=== PATIENT | female | born 1975 | race Caucasian/White ===

== ENCOUNTER → 2016-06-04 | Outpatient (CLI) | payer MEDICARE, OTHER ==
--- NOTE | 2016-06-06 09:53 | MM ---
Reason for exam: screening (asymptomatic). Last mammogram was performed 1 year ago. History: Patient history of other cancer. Benign left mammotome panel of the left breast, April 09, 2011. Physical Findings: A clinical breast exam by your physician is recommended on an annual basis and results should be correlated with mammographic findings. MG 3D Screening Mammo W/Cad Bilateral CC and MLO view(s) were taken. Prior study comparison: June 01, 2015, bilateral MG screening mammo w CAD. April 28, 2012, CAD bilateral diagnostic mammogram. The breast tissue is heterogeneously dense. This may lower the sensitivity of mammography. There is no discrete abnormality. No significant changes when compared with prior studies. ASSESSMENT: Negative, BI-RAD 1 RECOMMENDATION: Routine screening mammogram of both breasts in 1 year.
== END | disposition home or self-care (01) ==
LOC: RADMAMWWP 13:22
PROVIDERS: ATTEND Family Medicine
DX: Z12.31 Encounter for screening mammogram for malignant neoplasm of breast (principal)
CPT/HCPCS: 77063; G0202

== ENCOUNTER 2017-02-12 15:21 | Emergency (ER) | payer MEDICARE, OTHER ==
[2017-02-12] MEDS ORDERED: SODIUM CHLORIDE 0.9% 2,000 ML IV STA (15:48)
[2017-02-12] MEDS ORDERED: METOCLOPRAMIDE 5 MG/ML 2 ML VIAL IVP STA (16:12)
--- NOTE | 2017-02-12 16:16 | ED ---
General Adult HPI - General Chief complaint: Nausea/Vomiting/Diarrhea Stated complaint: Low Blood Pressure Time Seen by Provider: 02/12/17 15:46 Source: patient, RN notes reviewed Mode of arrival: wheelchair Limitations: no limitations - History of Present Illness Initial comments: This a 42-year-old female presents emergency Department with chief complaint of not feeling well. Patient states that she's been having increased weakness, weight loss nausea and vomiting. Patient states that she lost her son last month and states that she just has not been able the margin she's lost approximately 20 pounds. Patient saw PCP yesterday arturo lab work and portable emergency department for hydration. She states she never became today she was not feeling better. She has been having bouts where she becomes dizzy and feels that she can pass out but has not lost consciousness. Patient states that she's had problems with this in the past in which her blood pressure was low. Patient denies any chest pain, palpitations, headache, weakness first breath, diarrhea or constipation. Patient states that she also was increased on her Paxil yesterday to help with her depression. Patient denies any suicidal or homicidal thoughts. - Related Data Home Medications Medication Instructions Recorded Confirmed Primidone [Mysoline] 50 mg PO TID 02/24/14 02/12/17 Cyclobenzaprine [Flexeril] 10 mg PO HS 02/12/17 02/12/17 Gabapentin [Neurontin] 400 mg PO TID 02/12/17 02/12/17 Ibuprofen [Motrin] 600 mg PO Q6HR 02/12/17 02/12/17 LORazepam [Ativan] 1 mg PO HS 02/12/17 02/12/17 Loratadine [Claritin] 10 mg PO DAILY 02/12/17 02/12/17 Lubiprostone [Amitiza] 8 mcg PO DAILY 02/12/17 02/12/17 PARoxetine [Paxil] 10 mg PO DAILY 02/12/17 02/12/17 Pantoprazole Sodium [Protonix] 40 mg PO DAILY 02/12/17 02/12/17 lamoTRIgine [LaMICtal Xr] 50 mg PO BID 02/12/17 02/12/17 oxyCODONE-APAP 10-325MG [Percocet 1 tab PO TID 02/12/17 02/12/17 10-325 mg] Previous Rx's Medication Instructions Recorded Meclizine [Antivert] 25 mg PO TID tab 01/11/15 Allergies Allergy/AdvReac Type Severity Reaction Status Date / Time clarithromycin [From Biaxin] AdvReac SEIZURES Verified 02/12/17 16:05 clonazepam [From Klonopin] AdvReac SEIZURES Verified 02/12/17 16:05 codeine AdvReac SEIZURES Verified 02/12/17 16:05 diphenhydramine HCl AdvReac SEIZURES Verified 02/12/17 16:05 [From Benadryl] hydrocodone bitartrate AdvReac SEIZURES Verified 02/12/17 16:05 [From Vicodin] meperidine HCl [From Demerol] AdvReac SEIZURES Verified 02/12/17 16:05 pregabalin [From Lyrica] AdvReac SEIZURES Verified 02/12/17 16:05 propoxyphene napsylate AdvReac SEIZURES Verified 02/12/17 16:05 [From Darvocet-N] Review of Systems ROS Statement: Those systems with pertinent positive or pertinent negative responses have been documented in the HPI. ROS Other: All systems not noted in ROS Statement are negative. Past Medical History Past Medical History: Fibromyalgia, Neurologic Disorder, Seizure Disorder Additional Past Medical History / Comment(s): tremors. back pain History of Any Multi-Drug Resistant Organisms: None Reported Past Surgical History: Hysterectomy, Orthopedic Surgery Additional Past Surgical History / Comment(s): rt wrist and shoulder Past Psychological History: No Psychological Hx Reported Smoking Status: Never smoker Past Alcohol Use History: None Reported Past Drug Use History: Marijuana General Exam Limitations: no limitations General appearance: alert, in no apparent distress Head exam: Present: atraumatic, normocephalic, normal inspection Eye exam: Present: normal appearance, PERRL, EOMI. Absent: scleral icterus, conjunctival injection, periorbital swelling ENT exam: Present: normal exam, normal oropharynx, mucous membranes moist, TM's normal bilaterally, normal external ear exam Neck exam: Present: normal inspection, full ROM. Absent: tenderness, meningismus, lymphadenopathy Respiratory exam: Present: normal lung sounds bilaterally. Absent: respiratory distress, wheezes, rales, rhonchi, stridor Cardiovascular Exam: Present: regular rate, normal rhythm, normal heart sounds. Absent: systolic murmur, diastolic murmur, rubs, gallop, clicks GI/Abdominal exam: Present: soft, normal bowel sounds. Absent: distended, tenderness, guarding, rebound, rigid Neurological exam: Present: alert, oriented X3, CN II-XII intact Skin exam: Present: warm, dry, intact, normal color. Absent: rash Course Vital Signs 02/12/17 02/12/17 02/12/17 15:40 16:49 18:01 Temperature 99.1 F 98.6 F Pulse Rate 68 72 56 L Respiratory 18 18 17 Rate Blood Pressure 106/55 103/55 97/54 O2 Sat by Pulse 98 100 99 Oximetry EKG Findings - EKG Comments: EKG Findings:: EKG performed at 16:29 sinus bradycardia with a rate of 55 MT interval 150 QRS duration 74 QT/QTC 406/388 Medical Decision Making - Medical Decision Making 42-year-old female was on emergency department for possible dehydration not feeling well. Patient lab work is unremarkable. Patient appears to have underlying depression secondary to loss of her son. Patient was hydrated emergency department states that she does feel better. Patient discharged advised to follow-up with her PCP return parameters were discussed. - Lab Data Result diagrams: 02/12/17 16:15 02/12/17 16:15 Lab Results 02/12/17 02/12/17 02/12/17 Range/Units 16:15 16:15 16:15 WBC 3.9 (3.8-10.6) k/uL RBC 4.11 (3.80-5.40) m/uL Hgb 13.3 (11.4-16.0) gm/dL Hct 39.2 (34.0-46.0) % MCV 95.3 (80.0-100.0) fL MCH 32.3 (25.0-35.0) pg MCHC 33.9 (31.0-37.0) g/dL RDW 12.8 (11.5-15.5) % Plt Count 209 (150-450) k/uL Neutrophils % 66 % Lymphocytes % 24 % Monocytes % 5 % Eosinophils % 3 % Basophils % 1 % Neutrophils # 2.6 (1.3-7.7) k/uL Lymphocytes # 1.0 (1.0-4.8) k/uL Monocytes # 0.2 (0-1.0) k/uL Eosinophils # 0.1 (0-0.7) k/uL Basophils # 0.0 (0-0.2) k/uL Sodium 139 (137-145) mmol/L Potassium 4.2 (3.5-5.1) mmol/L Chloride 105 (98-107) mmol/L Carbon Dioxide 25 (22-30) mmol/L Anion Gap 9 mmol/L BUN 10 (7-17) mg/dL Creatinine 0.74 (0.52-1.04) mg/dL Est GFR (MDRD) Af Amer >60 (>60 ml/min/1.73 sqM) Est GFR (MDRD) Non-Af >60 (>60 ml/min/1.73 sqM) Glucose 96 (74-99) mg/dL Calcium 9.2 (8.4-10.2) mg/dL Total Bilirubin 0.2 (0.2-1.3) mg/dL AST 18 (14-36) U/L ALT 24 (9-52) U/L Alkaline Phosphatase 48 (38-126) U/L Troponin I (0.000-0.034) ng/mL Total Protein 6.3 (6.3-8.2) g/dL Albumin 4.0 (3.5-5.0) g/dL Amylase 57 (30-110) U/L Lipase 155 (23-300) U/L Urine Color Light Yellow Urine Appearance Clear (Clear) Urine pH 6.0 (5.0-8.0) Ur Specific Run[place] 1.006 (1.001-1.035) Urine Protein Negative (Negative) Urine Glucose (UA) 1+ H (Negative) Urine Ketones Negative (Negative) Urine Blood Negative (Negative) Urine Nitrite Negative (Negative) Urine Bilirubin Negative (Negative) Urine Urobilinogen <2.0 (<2.0) mg/dL Ur Leukocyte Esterase Negative (Negative) 02/12/17 Range/Units 16:15 WBC (3.8-10.6) k/uL RBC (3.80-5.40) m/uL Hgb (11.4-16.0) gm/dL Hct (34.0-46.0) % MCV (80.0-100.0) fL MCH (25.0-35.0) pg MCHC (31.0-37.0) g/dL RDW (11.5-15.5) % Plt Count (150-450) k/uL Neutrophils % % Lymphocytes % % Monocytes % % Eosinophils % % Basophils % % Neutrophils # (1.3-7.7) k/uL Lymphocytes # (1.0-4.8) k/uL Monocytes # (0-1.0) k/uL Eosinophils # (0-0.7) k/uL Basophils # (0-0.2) k/uL Sodium (137-145) mmol/L Potassium (3.5-5.1) mmol/L Chloride (98-107) mmol/L Carbon Dioxide (22-30) mmol/L Anion Gap mmol/L BUN (7-17) mg/dL Creatinine (0.52-1.04) mg/dL Est GFR (MDRD) Af Amer (>60 ml/min/1.73 sqM) Est GFR (MDRD) Non-Af (>60 ml/min/1.73 sqM) Glucose (74-99) mg/dL Calcium (8.4-10.2) mg/dL Total Bilirubin (0.2-1.3) mg/dL AST (14-36) U/L ALT (9-52) U/L Alkaline Phosphatase (38-126) U/L Troponin I <0.012 (0.000-0.034) ng/mL Total Protein (6.3-8.2) g/dL Albumin (3.5-5.0) g/dL Amylase (30-110) U/L Lipase (23-300) U/L Urine Color Urine Appearance (Clear) Urine pH (5.0-8.0) Ur Specific [place] (1.001-1.035) Urine Protein (Negative) Urine Glucose (UA) (Negative) Urine Ketones (Negative) Urine Blood (Negative) Urine Nitrite (Negative) Urine Bilirubin (Negative) Urine Urobilinogen (<2.0) mg/dL Ur Leukocyte Esterase (Negative) Disposition Clinical Impression: Depression, Decreased appetite Disposition: HOME SELF-CARE Condition: Stable Instructions: Depression (ED) Additional Instructions: Please return to the Emergency Department if symptoms worsen or any other concerns. Referrals: Sergei Jordan MD [Primary Care Provider] - 1-2 days Time of Disposition: 18:06
[2017-02-12 16:34] LABS: Basophils % (A) 1 %; CH 31.8; CHCM 33.5; Eosinophils # (A) 0.1 k/uL (0-0.7); Eosinophils % (A) 3 %; HCT 39.2 % (34.0-46.0); HDW 2.39; HGB 13.3 gm/dL (11.4-16.0); Luc # (Auto) 0.04; Luc % (Auto) 1; Lymphocytes % (A) 24 %; MCH 32.3 pg (25.0-35.0); MCHC 33.9 g/dL (31.0-37.0); MCV 95.3 fL (80.0-100.0); Mean Platelet Volume 7.3; Monocytes # (A) 0.2 k/uL (0-1.0); Monocytes % (A) 5 %; Neutrophils # (A) 2.6 k/uL (1.3-7.7); Neutrophils % (A) 66 %; RBC 4.11 m/uL (3.80-5.40); RDW 12.8 % (11.5-15.5); WBC 3.9 k/uL (3.8-10.6); WBC (Perox) 3.98
[2017-02-12 16:44] LABS: ALT 24 U/L (9-52); AST 18 U/L (14-36); Alkaline Phosphatase 48 U/L (38-126); Amylase 57 U/L (30-110); Anion Gap 9 mmol/L; Blood Urea Nitrogen 10 mg/dL (7-17); Calcium 9.2 mg/dL (8.4-10.2); Carbon Dioxide 25 mmol/L (22-30); Chloride 105 mmol/L (98-107); Glucose 96 mg/dL (74-99); Non-African American GFR(MDRD) >60 (>60 ml/min/1.73 sqM); Potassium 4.2 mmol/L (3.5-5.1); Sodium 139 mmol/L (137-145); Total Bilirubin 0.2 mg/dL (0.2-1.3); Total Protein 6.3 g/dL (6.3-8.2)
[2017-02-12 17:54] LABS: Appearance,Urine Clear (Clear); Bilirubin,Urine Negative (Negative); Glucose,Urine (UA) 1+ (Negative); Ketones,Urine Negative (Negative); Leukocyte Esterase,Urine Negative (Negative); Nitrite,Urine Negative (Negative); Protein,Urine Negative (Negative); Specific Gravity,Urine 1.006 (1.001-1.035); UA Billing (MACRO vs. MICRO) CHEM; Urobilinogen,Urine <2.0 mg/dL (<2.0)
[2017-02-12 18:02] VITALS: BP 97/54; PULSE 56; RESP 17; TEMP 98.6
== END 2017-02-12 18:15 | disposition home or self-care (01) ==
LOC: EC 15:21
DX: F32.9 Major depressive disorder, single episode, unspecified (principal); R63.0 Anorexia; R11.2 Nausea with vomiting, unspecified; R53.1 Weakness; R42 Dizziness and giddiness; G40.909 Epilepsy, unspecified, not intractable, without status epilepticus; M79.7 Fibromyalgia; Z79.1 Long term (current) use of non-steroidal anti-inflammatories (NSAID); Z79.891 Long term (current) use of opiate analgesic; Z79.899 Other long term (current) drug therapy; Z88.1 Allergy status to other antibiotic agents; Z88.5 Allergy status to narcotic agent; Z88.8 Allergy status to other drugs, medicaments and biological substances
CPT/HCPCS: 99284; 96374; 96361; 36415; 93005; 80053; 82150; 83690; 84484; 85025; 81003; J2765

== ENCOUNTER 2017-08-06 10:47 | Emergency (ER) | payer MEDICARE, OTHER ==
[2017-08-06] MEDS ORDERED: SODIUM CHLORIDE 0.9% 500 ML IV STA (11:16)
[2017-08-06] MEDS ORDERED: ONDANSETRON 4 MG/2 ML VIAL IVP STA (11:16)
[2017-08-06] MEDS ORDERED: SODIUM CHLORIDE 0.9% 1,000 ML IV STA (11:16)
--- NOTE | 2017-08-06 11:50 | ED ---
General Adult HPI - General Chief complaint: Nausea/Vomiting/Diarrhea Stated complaint: shaky/trouble standing/no appetite Time Seen by Provider: 08/06/17 11:00 Source: patient, RN notes reviewed, old records reviewed Mode of arrival: wheelchair Limitations: no limitations - History of Present Illness Initial comments: This is a 42-year-old female to the ER for evaluation. She presents today for evaluation regarding cough congestion weakness dizziness lightheadedness, patient states she feels severely anxious. Concerned she has pneumonia or other disease patient does have chronic pain issues with neurologic disorders. She did taking all medications as prescribed. Patient does admit to recent weight loss. She admits to nausea with no diarrhea. No fevers. No chest pain. Patient does admit to increased stress in her life with her son dying within the last year - Related Data Home Medications Medication Instructions Recorded Confirmed Primidone [Mysoline] 50 mg PO TID 02/24/14 08/06/17 Gabapentin [Neurontin] 400 mg PO TID 02/12/17 08/06/17 Ibuprofen [Motrin] 600 mg PO BID 02/12/17 08/06/17 Loratadine [Claritin] 10 mg PO DAILY 02/12/17 08/06/17 PARoxetine [Paxil] 10 mg PO DAILY 02/12/17 08/06/17 Pantoprazole Sodium [Protonix] 40 mg PO DAILY 02/12/17 08/06/17 lamoTRIgine [LaMICtal Xr] 50 mg PO TID 02/12/17 08/06/17 oxyCODONE-APAP 10-325MG [Percocet 1 tab PO TID 02/12/17 08/06/17 10-325 mg] Linaclotide [Linzess] 72 mcg PO DAILY 08/06/17 08/06/17 Previous Rx's Medication Instructions Recorded Meclizine [Antivert] 25 mg PO TID tab 01/11/15 Oseltamivir [Tamiflu] 75 mg PO Q12HR #10 cap 08/06/17 Allergies Allergy/AdvReac Type Severity Reaction Status Date / Time clarithromycin [From Biaxin] AdvReac SEIZURES Verified 08/06/17 11:21 clonazepam [From Klonopin] AdvReac SEIZURES Verified 08/06/17 11:21 codeine AdvReac SEIZURES Verified 08/06/17 11:21 diphenhydramine HCl AdvReac SEIZURES Verified 08/06/17 11:21 [From Benadryl] hydrocodone bitartrate AdvReac SEIZURES Verified 08/06/17 11:21 [From Vicodin] meperidine HCl [From Demerol] AdvReac SEIZURES Verified 08/06/17 11:21 pregabalin [From Lyrica] AdvReac SEIZURES Verified 08/06/17 11:21 propoxyphene napsylate AdvReac SEIZURES Verified 08/06/17 11:21 [From Darvocet-N] Review of Systems ROS Statement: Those systems with pertinent positive or pertinent negative responses have been documented in the HPI. ROS Other: All systems not noted in ROS Statement are negative. Past Medical History Past Medical History: Fibromyalgia, Neurologic Disorder, Seizure Disorder Additional Past Medical History / Comment(s): tremors. back pain History of Any Multi-Drug Resistant Organisms: None Reported Past Surgical History: Hysterectomy, Orthopedic Surgery Additional Past Surgical History / Comment(s): rt wrist and shoulder Past Psychological History: No Psychological Hx Reported Smoking Status: Never smoker Past Alcohol Use History: None Reported Past Drug Use History: Marijuana General Exam Limitations: no limitations General appearance: alert, in no apparent distress Head exam: Present: atraumatic, normocephalic, normal inspection Eye exam: Present: normal appearance, PERRL, EOMI. Absent: scleral icterus, conjunctival injection, periorbital swelling ENT exam: Present: normal exam, mucous membranes moist Neck exam: Present: normal inspection. Absent: tenderness, meningismus, lymphadenopathy Respiratory exam: Present: normal lung sounds bilaterally. Absent: respiratory distress, wheezes, rales, rhonchi, stridor Cardiovascular Exam: Present: regular rate, normal rhythm, normal heart sounds. Absent: systolic murmur, diastolic murmur, rubs, gallop, clicks GI/Abdominal exam: Present: soft, normal bowel sounds. Absent: distended, tenderness, guarding, rebound, rigid Extremities exam: Present: normal inspection, full ROM, normal capillary refill. Absent: tenderness, pedal edema, joint swelling, calf tenderness Back exam: Present: normal inspection Neurological exam: Present: alert, oriented X3, CN II-XII intact Psychiatric exam: Present: normal affect, normal mood Skin exam: Present: warm, dry, intact, normal color. Absent: rash Course Vital Signs 08/06/17 08/06/17 10:55 12:23 Temperature 97.6 F Pulse Rate 66 56 L Respiratory 18 16 Rate Blood Pressure 100/53 97/58 O2 Sat by Pulse 100 98 Oximetry - Reevaluation(s) Reevaluation #1: 08/06/17 11:50 Patient has mild improvement in symptoms Reevaluation #2: 08/06/17 12:58 Patient is in no acute distress EKG Findings - EKG Comments: EKG Findings:: EKG shows sinus bradycardia rate of 58, ND 142, QRS 74, QTC 433 Medical Decision Making - Medical Decision Making 42 female the ER not feeling well, positive influenza. We'll treat appropriately, patient encouraged fluid intake and rest. Patient can be discharged home - Lab Data Result diagrams: 08/06/17 11:39 08/06/17 11:39 Lab Results 08/06/17 08/06/17 08/06/17 Range/Units 11:39 11:39 11:39 WBC 2.2 L (3.8-10.6) k/uL RBC 4.54 (3.80-5.40) m/uL Hgb 14.3 (11.4-16.0) gm/dL Hct 39.6 (34.0-46.0) % MCV 87.1 (80.0-100.0) fL MCH 31.6 (25.0-35.0) pg MCHC 36.2 (31.0-37.0) g/dL RDW 12.3 (11.5-15.5) % Plt Count 153 (150-450) k/uL Neutrophils % 34 % Lymphocytes % 54 % Monocytes % 7 % Eosinophils % 0 % Basophils % 1 % Neutrophils # 0.8 L (1.3-7.7) k/uL Lymphocytes # 1.2 (1.0-4.8) k/uL Monocytes # 0.2 (0-1.0) k/uL Eosinophils # 0.0 (0-0.7) k/uL Basophils # 0.0 (0-0.2) k/uL Manual Slide Review Performed RBC Morphology Normal PT (9.0-12.0) sec INR (<1.2) APTT (22.0-30.0) sec Sodium 141 (137-145) mmol/L Potassium 4.2 (3.5-5.1) mmol/L Chloride 106 (98-107) mmol/L Carbon Dioxide 19 L (22-30) mmol/L Anion Gap 16 mmol/L BUN 15 (7-17) mg/dL Creatinine 0.50 L (0.52-1.04) mg/dL Est GFR (CKD-EPI)AfAm >90 (>60 ml/min/1.73 sqM) Est GFR (CKD-EPI)NonAf >90 (>60 ml/min/1.73 sqM) Glucose 81 (74-99) mg/dL Plasma Lactic Acid Garcia (0.7-2.0) mmol/L Calcium 9.6 (8.4-10.2) mg/dL Phosphorus 2.5 (2.5-4.5) mg/dL Magnesium 1.6 (1.6-2.3) mg/dL Total Bilirubin 0.7 (0.2-1.3) mg/dL AST 27 (14-36) U/L ALT 27 (9-52) U/L Alkaline Phosphatase 54 (38-126) U/L Total Creatine Kinase 35 (30-135) U/L CK-MB (CK-2) 0.3 (0.0-2.4) ng/mL CK-MB (CK-2) Rel Index 0.9 Troponin I <0.012 (0.000-0.034) ng/mL Total Protein 6.8 (6.3-8.2) g/dL Albumin 4.2 (3.5-5.0) g/dL TSH 3.410 (0.465-4.680) mIU/L Influenza Type A RNA (Not Detectd) Influenza Type B (PCR) (Not Detectd) 08/06/17 08/06/17 08/06/17 Range/Units 11:39 11:39 12:17 WBC (3.8-10.6) k/uL RBC (3.80-5.40) m/uL Hgb (11.4-16.0) gm/dL Hct (34.0-46.0) % MCV (80.0-100.0) fL MCH (25.0-35.0) pg MCHC (31.0-37.0) g/dL RDW (11.5-15.5) % Plt Count (150-450) k/uL Neutrophils % % Lymphocytes % % Monocytes % % Eosinophils % % Basophils % % Neutrophils # (1.3-7.7) k/uL Lymphocytes # (1.0-4.8) k/uL Monocytes # (0-1.0) k/uL Eosinophils # (0-0.7) k/uL Basophils # (0-0.2) k/uL Manual Slide Review RBC Morphology PT 10.0 (9.0-12.0) sec INR 1.0 (<1.2) APTT 25.9 (22.0-30.0) sec Sodium (137-145) mmol/L Potassium (3.5-5.1) mmol/L Chloride (98-107) mmol/L Carbon Dioxide (22-30) mmol/L Anion Gap mmol/L BUN (7-17) mg/dL Creatinine (0.52-1.04) mg/dL Est GFR (CKD-EPI)AfAm (>60 ml/min/1.73 sqM) Est GFR (CKD-EPI)NonAf (>60 ml/min/1.73 sqM) Glucose (74-99) mg/dL Plasma Lactic Acid Garcia 1.3 (0.7-2.0) mmol/L Calcium (8.4-10.2) mg/dL Phosphorus (2.5-4.5) mg/dL Magnesium (1.6-2.3) mg/dL Total Bilirubin (0.2-1.3) mg/dL AST (14-36) U/L ALT (9-52) U/L Alkaline Phosphatase (38-126) U/L Total Creatine Kinase (30-135) U/L CK-MB (CK-2) (0.0-2.4) ng/mL CK-MB (CK-2) Rel Index Troponin I (0.000-0.034) ng/mL Total Protein (6.3-8.2) g/dL Albumin (3.5-5.0) g/dL TSH (0.465-4.680) mIU/L Influenza Type A RNA Not Detected (Not Detectd) Influenza Type B (PCR) Detected H (Not Detectd) - Radiology Data Radiology results: report reviewed (Chest x-ray and ultrasound of GALLBLADDER NEGATIVE), image reviewed Disposition Clinical Impression: Dehydration, Influenza Disposition: HOME SELF-CARE Condition: Good Instructions: Influenza (ED) Prescriptions: Oseltamivir [Tamiflu] 75 mg PO Q12HR #10 cap Referrals: Sergei Jordan MD [Primary Care Provider] - 1-2 days
[2017-08-06 12:07] LABS: ALT 27 U/L (9-52); AST 27 U/L (14-36); Albumin 4.2 g/dL (3.5-5.0); Alkaline Phosphatase 54 U/L (38-126); Anion Gap 16 mmol/L; Blood Urea Nitrogen 15 mg/dL (7-17); Calcium 9.6 mg/dL (8.4-10.2); Carbon Dioxide 19 mmol/L (22-30); Chloride 106 mmol/L (98-107); Glucose 81 mg/dL (74-99); Magnesium 1.6 mg/dL (1.6-2.3); Phosphorus 2.5 mg/dL (2.5-4.5); Potassium 4.2 mmol/L (3.5-5.1); Sodium 141 mmol/L (137-145); Total Bilirubin 0.7 mg/dL (0.2-1.3); Total Protein 6.8 g/dL (6.3-8.2)
[2017-08-06 12:08] LABS: Partial Thromboplastin Time 25.9 sec (22.0-30.0)
[2017-08-06 12:14] LABS: Creatine Kinase 35 U/L (30-135)
--- NOTE | 2017-08-06 12:19 | XR ---
EXAMINATION TYPE: XR chest 2V DATE OF EXAM: 08/06/2017 COMPARISON: NONE HISTORY: Chills and weakness. TECHNIQUE: Frontal and lateral views of the chest are obtained. FINDINGS: There is no focal air space opacity, pleural effusion, or pneumothorax seen. The cardiac silhouette size is within normal limits. Underlying scoliosis is present. IMPRESSION: No suspicious acute pulmonary process.
[2017-08-06 12:20] LABS: Basophils % (A) 1 %; Eosinophils % (A) 0 %; HCT 39.6 % (34.0-46.0); HGB 14.3 gm/dL (11.4-16.0); Lymphocytes # (A) 1.2 k/uL (1.0-4.8); Lymphocytes % (A) 54 %; MCH 31.6 pg (25.0-35.0); MCHC 36.2 g/dL (31.0-37.0); MCV 87.1 fL (80.0-100.0); Monocytes # (A) 0.2 k/uL (0-1.0); Monocytes % (A) 7 %; Neutrophils # (A) 0.8 k/uL (1.3-7.7); Neutrophils % (A) 34 %; Platelet Count 153 k/uL (150-450); RBC 4.54 m/uL (3.80-5.40); RDW 12.3 % (11.5-15.5); WBC 2.2 k/uL (3.8-10.6)
[2017-08-06 12:27] LABS: Creatine Kinase MB 0.3 ng/mL (0.0-2.4); Troponin I <0.012 ng/mL (0.000-0.034)
--- NOTE | 2017-08-06 12:54 | US ---
EXAMINATION TYPE: US gallbladder DATE OF EXAM: 08/06/2017 COMPARISON: NONE CLINICAL HISTORY: Pain. Pt states ABD pain with nausea EXAM MEASUREMENTS: Liver Length: 14.0 cm Gallbladder Wall: 0.3 cm CBD: 0.3 cm Right Kidney: 8.1 x 3.4 x 4.8 cm Pancreas: wnl, tail obscured by bowel gas Liver: Hyperechoic lesion right lobe= 1.1 x 0.6 x 1.0 cm, otherwise appeared wnl Gallbladder: wnl Evidence for sonographic Giron's sign: Yes CBD: wnl Right Kidney: Kidney small in size with cyst upper pole= 5.0 x 4.9 x 5.3 cm IMPRESSION: 1. No sonographic evidence of cholelithiasis or acute cholecystitis. 2. Solitary hyperechoic 1.1 cm hepatic lesion. In a patient of this age group. No history of backgrou nd liver disease is most commonly represents a hemangioma. Dynamic enhanced CT abdomen (liver mass pr otocol) could be performed for confirmation.
[2017-08-06] MEDS ORDERED: OSELTAMIVIR 75 MG CAP PO STA (12:57)
[2017-08-06] MEDS ORDERED: DEXAMETHASONE SOD PHOSPHATE 10 MG/ML 1 ML VIAL IM STA (12:57)
[2017-08-06 13:23] VITALS: BP 106/68; PULSE 60; RESP 18; TEMP 98.2
== END 2017-08-06 13:41 | disposition home or self-care (01) ==
LOC: EC 10:47
DX: E86.0 Dehydration (principal); J11.1 Influenza due to unidentified influenza virus with other respiratory manifestations; R11.0 Nausea; F41.9 Anxiety disorder, unspecified; F43.9 Reaction to severe stress, unspecified; M79.7 Fibromyalgia; G40.909 Epilepsy, unspecified, not intractable, without status epilepticus; Z79.891 Long term (current) use of opiate analgesic; Z79.1 Long term (current) use of non-steroidal anti-inflammatories (NSAID); Z79.899 Other long term (current) drug therapy; Z88.1 Allergy status to other antibiotic agents; Z88.5 Allergy status to narcotic agent; Z88.8 Allergy status to other drugs, medicaments and biological substances
CPT/HCPCS: 36415; 93005; 83880; 80053; 82550; 82553; 83605; 83735; 84100; 84443; 84484; 85025; 85610; 85730; 87502; 71046; 76705; 99285; 96374; 96361; 96372; J1100; J2405

== ENCOUNTER 2019-04-05 17:43 | Emergency (ER) | payer MEDICARE, OTHER ==
--- NOTE | 2019-04-05 18:08 | ED ---
Chest Pain HPI - General Stated Complaint: chest pain Time Seen by Provider: 04/05/19 17:53 Source: RN notes reviewed, old records reviewed Limitations: no limitations - History of Present Illness Initial Comments: This is a 44-year-old female the ER for evaluation she presents today for evaluation regards to chest pain. Left-sided chest pain stabbing chest pain pain to her back for 2 days. Patient has history of stabbing shooting pains in her left side. She has had prior heart evaluations including stress tests which have been normal. She went to [facility] was sent to ER. She does admit to increased stress as of late, remembering for of her son as well as some increased stress. She was on vacation. Patient did just return to [place] has no leg pain no leg swelling no shortness of breath noted. Patient did drive to and from [place] denying fevers cough congestion. MD Complaint: chest pain -: days(s) Onset: during rest, during exertion Pain Location: substernal, left chest Pain Radiation: LUE Severity: mild Severity scale (1-10): 5 Quality: tightness, aching Consistency: intermittent Improves With: nothing Worsens With: nothing Anginal Symptoms: nausea Other Symptoms: palpitations, other (Stress) Treatments Prior to Arrival: none - Related Data Home Medications Medication Instructions Recorded Confirmed Primidone [Mysoline] 50 mg PO TID 02/24/14 08/06/17 Gabapentin [Neurontin] 400 mg PO TID 02/12/17 08/06/17 Ibuprofen [Motrin] 600 mg PO BID 02/12/17 08/06/17 Loratadine [Claritin] 10 mg PO DAILY 02/12/17 08/06/17 PARoxetine [Paxil] 10 mg PO DAILY 02/12/17 08/06/17 Pantoprazole Sodium [Protonix] 40 mg PO DAILY 02/12/17 08/06/17 lamoTRIgine [LaMICtal Xr] 50 mg PO TID 02/12/17 08/06/17 oxyCODONE-APAP 10-325MG [Percocet 1 tab PO TID 02/12/17 08/06/17 10-325 mg] Linaclotide [Linzess] 72 mcg PO DAILY 08/06/17 08/06/17 Previous Rx's Medication Instructions Recorded Meclizine [Antivert] 25 mg PO TID tab 01/11/15 Oseltamivir [Tamiflu] 75 mg PO Q12HR #10 cap 08/06/17 Allergies Allergy/AdvReac Type Severity Reaction Status Date / Time clarithromycin [From Biaxin] AdvReac SEIZURES Verified 08/06/17 11:21 clonazepam [From Klonopin] AdvReac SEIZURES Verified 08/06/17 11:21 codeine AdvReac SEIZURES Verified 08/06/17 11:21 diphenhydramine HCl AdvReac SEIZURES Verified 08/06/17 11:21 [From Benadryl] hydrocodone bitartrate AdvReac SEIZURES Verified 08/06/17 11:21 [From Vicodin] meperidine HCl [From Demerol] AdvReac SEIZURES Verified 08/06/17 11:21 pregabalin [From Lyrica] AdvReac SEIZURES Verified 08/06/17 11:21 propoxyphene napsylate AdvReac SEIZURES Verified 08/06/17 11:21 [From Darvocet-N] Review of Systems ROS Statement: Those systems with pertinent positive or pertinent negative responses have been documented in the HPI. ROS Other: All systems not noted in ROS Statement are negative. EKG Findings - EKG Comments: EKG Findings:: EKG shows sinus rhythm rate of 67, HI 140, QRS 80, QTC 435 Past Medical History Past Medical History: Fibromyalgia, Neurologic Disorder, Seizure Disorder Additional Past Medical History / Comment(s): tremors. back pain History of Any Multi-Drug Resistant Organisms: None Reported Past Surgical History: Hysterectomy, Orthopedic Surgery Additional Past Surgical History / Comment(s): rt wrist and shoulder Past Psychological History: No Psychological Hx Reported Smoking Status: Never smoker Past Alcohol Use History: None Reported Past Drug Use History: Marijuana General Exam General appearance: alert, in no apparent distress, anxious Head exam: Present: atraumatic, normocephalic, normal inspection Eye exam: Present: normal appearance, PERRL, EOMI. Absent: scleral icterus, conjunctival injection, periorbital swelling ENT exam: Present: normal exam, mucous membranes moist Neck exam: Present: normal inspection. Absent: tenderness, meningismus, lymphadenopathy Respiratory exam: Present: normal lung sounds bilaterally. Absent: respiratory distress, wheezes, rales, rhonchi, stridor Cardiovascular Exam: Present: regular rate, normal rhythm, normal heart sounds. Absent: systolic murmur, diastolic murmur, rubs, gallop, clicks GI/Abdominal exam: Present: soft, normal bowel sounds. Absent: distended, tenderness, guarding, rebound, rigid Extremities exam: Present: normal inspection, full ROM, normal capillary refill. Absent: tenderness, pedal edema, joint swelling, calf tenderness Back exam: Present: normal inspection Neurological exam: Present: alert, oriented X3, CN II-XII intact Psychiatric exam: Present: normal affect, normal mood Skin exam: Present: warm, dry, intact, normal color. Absent: rash Course Vital Signs 04/05/19 04/05/19 04/05/19 17:45 17:47 18:58 Temperature 98.2 F 98.2 F Pulse Rate 70 72 Pulse Rate [ 70 [employer] ] Respiratory 18 18 Rate Blood Pressure 108/83 108/69 O2 Sat by Pulse 98 98 Oximetry 04/05/19 04/05/19 19:12 20:27 Temperature 97.8 F 98.4 F Pulse Rate 84 57 L Pulse Rate [ [employer] ] Respiratory 18 12 Rate Blood Pressure 112/97 97/61 O2 Sat by Pulse 98 95 Oximetry - Reevaluation(s) Reevaluation #1: Medical record is reviewed Patient denying current chest pain. Does show by with anxiety medication Patient does not want stay in the ER for further evaluation or monitor Chest Pain MDM - MDM 44 female the ER for evaluation presented with chest pain. Patient presents today for atypical chest pain. Patient states he feels good at this time, she does admit to some significant anxiety has had recent cardiac evaluation does not want stay in the ER for evaluation Disposition Clinical Impression: Chest pain, Atypical chest pain, Panic attack Disposition: HOME SELF-CARE Condition: Good Instructions (If sedation given, give patient instructions): Chest Pain (ED) Is patient prescribed a controlled substance at d/c from ED?: No Referrals: Kumar Joseph Jr, [Primary Care Provider] - 1-2 days
[2019-04-05] MEDS ORDERED: MORPHINE SULFATE 4 MG/ML SYRINGE IVP STA (18:17)
[2019-04-05] MEDS ORDERED: PANTOPRAZOLE 40 MG/10 ML VIAL IVP STA (18:17)
[2019-04-05] MEDS ORDERED: LORazepam 2 MG/ML INJ IV STA (18:17)
[2019-04-05] MEDS ORDERED: SODIUM CHLORIDE 0.9% 1,000 ML IV STA (18:17)
[2019-04-05 18:41] LABS: Basophils # (A) 0.1 k/uL (0-0.2); Basophils % (A) 1 %; Eosinophils # (A) 0.1 k/uL (0-0.7); Eosinophils % (A) 1 %; HCT 40.2 % (34.0-46.0); HGB 13.4 gm/dL (11.4-16.0); Lymphocytes # (A) 1.9 k/uL (1.0-4.8); Lymphocytes % (A) 29 %; MCH 31.3 pg (25.0-35.0); MCHC 33.3 g/dL (31.0-37.0); MCV 93.9 fL (80.0-100.0); Monocytes # (A) 0.4 k/uL (0-1.0); Monocytes % (A) 6 %; Neutrophils % (A) 61 %; Platelet Count 247 k/uL (150-450); RBC 4.28 m/uL (3.80-5.40); RDW 12.1 % (11.5-15.5); WBC 6.6 k/uL (3.8-10.6)
--- NOTE | 2019-04-05 18:41 | XR ---
EXAMINATION TYPE: XR chest 2V DATE OF EXAM: 04/05/2019 COMPARISON: 08/06/2017 HISTORY: Chest pain TECHNIQUE: Frontal and lateral views of the chest are obtained. FINDINGS: There is thoracic dextroscoliosis. Heart and mediastinum are normal. Lungs are clear. Diap hragm is normal. There are chest leads. IMPRESSION: No cardiopulmonary disease. No change.
[2019-04-05 18:50] LABS: ALT 20 U/L (9-52); AST 26 U/L (14-36); African American GFR (CKD) >90 (>60 ml/min/1.73 sqM); Albumin 4.4 g/dL (3.5-5.0); Alkaline Phosphatase 64 U/L (38-126); Anion Gap 10 mmol/L; Blood Urea Nitrogen 16 mg/dL (7-17); Calcium 9.8 mg/dL (8.4-10.2); Carbon Dioxide 22 mmol/L (22-30); Chloride 106 mmol/L (98-107); Creatine Kinase 443 U/L (30-135); Glucose 77 mg/dL (74-99); Magnesium 1.8 mg/dL (1.6-2.3); Non-African American GFR(CKD) 87 (>60 ml/min/1.73 sqM); Potassium 3.9 mmol/L (3.5-5.1); Sodium 138 mmol/L (137-145); Total Bilirubin 0.6 mg/dL (0.2-1.3)
[2019-04-05 18:58] LABS: D-Dimer 0.32 mg/L FEU (<0.60); INR 0.9 (<1.2); Partial Thromboplastin Time 25.1 sec (22.0-30.0); Prothrombin Time 10.2 sec (9.0-12.0)
[2019-04-05 19:12] LABS: Creatine Kinase MB 3.6 ng/mL (0.0-2.4); Troponin I <0.012 ng/mL (0.000-0.034)
[2019-04-05 20:28] VITALS: BP 97/61; PULSE 57; RESP 12; TEMP 98.4
== END 2019-04-05 20:00 | disposition home or self-care (01) ==
LOC: EC 17:43
DX: F41.0 Panic disorder [episodic paroxysmal anxiety] (principal); R07.89 Other chest pain; M79.7 Fibromyalgia; G40.909 Epilepsy, unspecified, not intractable, without status epilepticus; M54.9 Dorsalgia, unspecified; Z79.899 Other long term (current) drug therapy; Z79.1 Long term (current) use of non-steroidal anti-inflammatories (NSAID); Z63.4 Disappearance and death of family member; Z88.1 Allergy status to other antibiotic agents; Z88.5 Allergy status to narcotic agent; Z88.8 Allergy status to other drugs, medicaments and biological substances
CPT/HCPCS: 36415; 93005; 85379; 83880; 80053; 82550; 82553; 83690; 83735; 84484; 85025; 85610; 85730; 71046; 99285; 96374; 96375 ×2; 96361; J2060; J2270; C9113

== ENCOUNTER 2019-12-01 15:57 | Emergency (ER) | payer MEDICARE, OTHER ==
[2019-12-01 16:01] VITALS: BP 131/89; PULSE 89; RESP 18; TEMP 98.9
[2019-12-01] MEDS ORDERED: KETOROLAC 30 MG/ML 1 ML VIAL IVP STA (16:19)
[2019-12-01] MEDS ORDERED: SODIUM CHLORIDE 0.9% 1,000 ML IV STA (16:19)
[2019-12-01] MEDS ORDERED: ONDANSETRON 4 MG/2 ML VIAL IVP STA (16:19)
--- NOTE | 2019-12-01 16:23 | ED ---
Abdominal Pain HPI - General Chief Complaint: Abdominal Pain Stated Complaint: IBS Time Seen by Provider: 12/01/19 16:05 Source: patient Mode of arrival: ambulatory Limitations: no limitations - History of Present Illness Initial Comments: Patient is a 44-year-old female, with history of IBS, presenting to the emergency department with complaints of constipation for the past 5 days. Patient states she normally goes back and forth between diarrhea and constipation but has the most trouble with constipation. Patient states her last bowel movement was 5 days ago. Patient states her abdominal pain has been increasing over the past few days as well as having lots of nausea and vomiting. She has not been able to eat anything the past 3 days. She states she has had 2 previous colonoscopies with no acute findings. She denies any blood in her stool. She denies any urinary symptoms. She denies any chest pain, shortness of breath, fever, chills. She admits to history of partial hysterectomy, no other abdominal surgeries. She states she has tried a suppository with no success. She has no further complaints at this time. Upon arrival to the ER, her vitals are stable. - Related Data Home Medications Medication Instructions Recorded Confirmed Primidone [Mysoline] 50 mg PO TID 02/24/14 12/01/19 Gabapentin [Neurontin] 400 mg PO TID PRN 02/12/17 12/01/19 Ibuprofen [Motrin] 600 mg PO BID 02/12/17 12/01/19 Loratadine [Claritin] 10 mg PO DAILY 02/12/17 12/01/19 lamoTRIgine [LaMICtal Xr] 50 mg PO TID 02/12/17 12/01/19 oxyCODONE-APAP 10-325MG [Percocet 1 tab PO TID 02/12/17 12/01/19 10-325 mg] Linaclotide [Linzess] 72 mcg PO DAILY 08/06/17 12/01/19 Ascorbic Acid [Vitamin C] 500 mg PO DAILY 12/01/19 12/01/19 Cholecalciferol [Vitamin D3 (25 1,000 units PO DAILY 12/01/19 12/01/19 Mcg = 1000 Iu)] Esomeprazole Magnesium 20 mg PO DAILY 12/01/19 12/01/19 Famotidine 20 mg PO HS 12/01/19 12/01/19 Ondansetron Odt [Zofran Odt] 8 mg PO Q8H PRN 12/01/19 12/01/19 PARoxetine HCL 40 mg PO DAILY 12/01/19 12/01/19 Potassium Gluconate 99 mg PO DAILY 12/01/19 12/01/19 Travoprost [Travatan Z 0.004%] 1 drop BOTH EYES HS 12/01/19 12/01/19 hydrOXYzine PAMOATE 25 mg PO BID 12/01/19 12/01/19 Previous Rx's Medication Instructions Recorded Meclizine [Antivert] 25 mg PO TID tab 01/11/15 Cephalexin [Keflex] 500 mg PO BID 5 Days #10 cap 12/01/19 Allergies Allergy/AdvReac Type Severity Reaction Status Date / Time clarithromycin [From Biaxin] AdvReac SEIZURES Verified 12/01/19 17:59 clonazepam [From Klonopin] AdvReac SEIZURES Verified 12/01/19 17:59 codeine AdvReac SEIZURES Verified 12/01/19 17:59 diphenhydramine HCl AdvReac SEIZURES Verified 12/01/19 17:59 [From Benadryl] hydrocodone bitartrate AdvReac SEIZURES Verified 12/01/19 17:59 [From Vicodin] meperidine HCl [From Demerol] AdvReac SEIZURES Verified 12/01/19 17:59 pregabalin [From Lyrica] AdvReac SEIZURES Verified 12/01/19 17:59 propoxyphene napsylate AdvReac SEIZURES Verified 12/01/19 17:59 [From Darvocet-N] Review of Systems ROS Statement: Those systems with pertinent positive or pertinent negative responses have been documented in the HPI. ROS Other: All systems not noted in ROS Statement are negative. Past Medical History Past Medical History: Fibromyalgia, Neurologic Disorder, Seizure Disorder Additional Past Medical History / Comment(s): tremors. back pain History of Any Multi-Drug Resistant Organisms: None Reported Past Surgical History: Hysterectomy, Orthopedic Surgery Additional Past Surgical History / Comment(s): rt wrist and shoulder Past Psychological History: No Psychological Hx Reported Past Alcohol Use History: None Reported Past Drug Use History: Marijuana General Exam - General Exam Comments Initial Comments: GENERAL: Well-appearing, well-nourished and in no acute distress, although appears uncom fortable. HEAD: Atraumatic, normocephalic. EYES: Pupils equal round and reactive to light, extraocular movements intact, sclera anicteric, conjunctiva are normal. ENT: TMs normal, nares patent, oropharynx clear without exudates. Moist mucous membranes. NECK: Normal range of motion, supple without lymphadenopathy or JVD. LUNGS: Breath sounds clear to auscultation bilaterally and equal. No wheezes rales or rhonchi. HEART: Regular rate and rhythm without murmurs, rubs or gallops. ABDOMEN: Patient has generalized abdominal tenderness, no specific area of pain. Soft, hypoactive bowel sounds. No guarding, no rebound. No masses appreciated. : Deferred EXTREMITIES: Normal range of motion, no pitting or edema. No clubbing or cyanosis. NEUROLOGICAL: Normal speech, normal gait. PSYCH: Normal mood, normal affect. SKIN: Warm, Dry, normal turgor, no rashes or lesions noted. Limitations: no limitations Course Vital Signs 12/01/19 15:58 Temperature 98.9 F Pulse Rate 89 Respiratory 18 Rate Blood Pressure 131/89 O2 Sat by Pulse 100 Oximetry Medical Decision Making - Medical Decision Making Patient is a 44-year-old female here with history of IBS presenting with constipation, abdominal pain, nausea, vomiting 5 days. Her vital signs are stable. Exam reveals generalized abdominal tenderness, no specific area of pain. Patient's lab work is unremarkable, lactic acid is normal, lipase is normal. Urine reveals nitrate positive, large amount of WBCs, bacteria. CT the abdomen was obtained and shows multiple fluid-filled small bowel loops, no transition point to suggest an obstruction. Possible consideration for ileus. No other acute findings. Patient was given fluids, pain control. She's been comfortable in the ER. I discussed these findings with the patient. Patient wishes to use enema at home. I will give her 1 g of Rocephin in the IV before discharge. She'll be discharged home with Keflex as well as Reglan for additional nausea and a promotility medicine. Patient is agreement with this plan of care. She is stable for discharge. Return parameters were discussed with the patient and she verbalized understanding. Case discussed with Dr. Gooden. - Lab Data Result diagrams: 12/01/19 16:11 12/01/19 16:11 Lab Results 12/01/19 12/01/19 12/01/19 Range/Units 16:11 16:11 16:11 WBC 4.8 (3.8-10.6) k/uL RBC 4.58 (3.80-5.40) m/uL Hgb 14.9 (11.4-16.0) gm/dL Hct 43.5 (34.0-46.0) % MCV 95.0 (80.0-100.0) fL MCH 32.6 (25.0-35.0) pg MCHC 34.3 (31.0-37.0) g/dL RDW 12.4 (11.5-15.5) % Plt Count 257 (150-450) k/uL Neutrophils % 60 % Lymphocytes % 29 % Monocytes % 7 % Eosinophils % 1 % Basophils % 1 % Neutrophils # 2.9 (1.3-7.7) k/uL Lymphocytes # 1.4 (1.0-4.8) k/uL Monocytes # 0.4 (0-1.0) k/uL Eosinophils # 0.1 (0-0.7) k/uL Basophils # 0.0 (0-0.2) k/uL PT 10.5 (9.0-12.0) sec INR 1.0 (<1.2) APTT 22.7 (22.0-30.0) sec Sodium 136 L (137-145) mmol/L Potassium 4.2 (3.5-5.1) mmol/L Chloride 104 (98-107) mmol/L Carbon Dioxide 23 (22-30) mmol/L Anion Gap 9 mmol/L BUN 16 (7-17) mg/dL Creatinine 0.78 (0.52-1.04) mg/dL Est GFR (CKD-EPI)AfAm >90 (>60 ml/min/1.73 sqM) Est GFR (CKD-EPI)NonAf >90 (>60 ml/min/1.73 sqM) Glucose 87 (74-99) mg/dL Plasma Lactic Acid Garcia (0.7-2.0) mmol/L Calcium 10.0 (8.4-10.2) mg/dL Total Bilirubin 0.6 (0.2-1.3) mg/dL AST 20 (14-36) U/L ALT 13 (4-34) U/L Alkaline Phosphatase 86 (38-126) U/L Total Protein 7.4 (6.3-8.2) g/dL Albumin 5.0 (3.5-5.0) g/dL Amylase 73 (30-110) U/L Lipase 181 (23-300) U/L Urine Color Urine Appearance (Clear) Urine pH (5.0-8.0) Ur Specific [place] (1.001-1.035) Urine Protein (Negative) Urine Glucose (UA) (Negative) Urine Ketones (Negative) Urine Blood (Negative) Urine Nitrite (Negative) Urine Bilirubin (Negative) Urine Urobilinogen (<2.0) mg/dL Ur Leukocyte Esterase (Negative) Urine RBC (0-5) /hpf Urine WBC (0-5) /hpf Ur Squamous Epith Cells (0-4) /hpf Urine Bacteria (None) /hpf Urine Mucus (None) /hpf Urine Yeast (Budding) (None) /hpf 12/01/19 12/01/19 Range/Units 16:11 16:39 WBC (3.8-10.6) k/uL RBC (3.80-5.40) m/uL Hgb (11.4-16.0) gm/dL Hct (34.0-46.0) % MCV (80.0-100.0) fL MCH (25.0-35.0) pg MCHC (31.0-37.0) g/dL RDW (11.5-15.5) % Plt Count (150-450) k/uL Neutrophils % % Lymphocytes % % Monocytes % % Eosinophils % % Basophils % % Neutrophils # (1.3-7.7) k/uL Lymphocytes # (1.0-4.8) k/uL Monocytes # (0-1.0) k/uL Eosinophils # (0-0.7) k/uL Basophils # (0-0.2) k/uL PT (9.0-12.0) sec INR (<1.2) APTT (22.0-30.0) sec Sodium (137-145) mmol/L Potassium (3.5-5.1) mmol/L Chloride (98-107) mmol/L Carbon Dioxide (22-30) mmol/L Anion Gap mmol/L BUN (7-17) mg/dL Creatinine (0.52-1.04) mg/dL Est GFR (CKD-EPI)AfAm (>60 ml/min/1.73 sqM) Est GFR (CKD-EPI)NonAf (>60 ml/min/1.73 sqM) Glucose (74-99) mg/dL Plasma Lactic Acid Garcia 0.9 (0.7-2.0) mmol/L Calcium (8.4-10.2) mg/dL Total Bilirubin (0.2-1.3) mg/dL AST (14-36) U/L ALT (4-34) U/L Alkaline Phosphatase (38-126) U/L Total Protein (6.3-8.2) g/dL Albumin (3.5-5.0) g/dL Amylase (30-110) U/L Lipase (23-300) U/L Urine Color Yellow Urine Appearance Cloudy H (Clear) Urine pH 6.0 (5.0-8.0) Ur Specific [place] 1.018 (1.001-1.035) Urine Protein Trace H (Negative) Urine Glucose (UA) Negative (Negative) Urine Ketones 1+ H (Negative) Urine Blood Negative (Negative) Urine Nitrite Positive H (Negative) Urine Bilirubin Negative (Negative) Urine Urobilinogen <2.0 (<2.0) mg/dL Ur Leukocyte Esterase Large H (Negative) Urine RBC 1 (0-5) /hpf Urine WBC 73 H (0-5) /hpf Ur Squamous Epith Cells <1 (0-4) /hpf Urine Bacteria Many H (None) /hpf Urine Mucus Occasional H (None) /hpf Urine Yeast (Budding) Few H (None) /hpf Disposition Clinical Impression: UTI (urinary tract infection), Constipation, Nausea & vomiting Disposition: HOME SELF-CARE Condition: Stable Instructions (If sedation given, give patient instructions): Constipation (ED), Urinary Tract Infection in Women (ED) Additional Instructions: Please return to the Emergency Department if symptoms worsen or any other concerns. Take antibiotic as prescribed. Use enema at home to help with constipation. Follow-up with PCP. Prescriptions: Cephalexin [Keflex] 500 mg PO BID 5 Days #10 cap Is patient prescribed a controlled substance at d/c from ED?: No Referrals: Sammy Peters MD [Primary Care Provider] - 1-2 days
[2019-12-01 16:37] LABS: Basophils % (A) 1 %; Eosinophils # (A) 0.1 k/uL (0-0.7); Eosinophils % (A) 1 %; HCT 43.5 % (34.0-46.0); HGB 14.9 gm/dL (11.4-16.0); Lymphocytes # (A) 1.4 k/uL (1.0-4.8); Lymphocytes % (A) 29 %; MCH 32.6 pg (25.0-35.0); MCHC 34.3 g/dL (31.0-37.0); Mean Platelet Volume 7.5; Monocytes # (A) 0.4 k/uL (0-1.0); Monocytes % (A) 7 %; Neutrophils # (A) 2.9 k/uL (1.3-7.7); Neutrophils % (A) 60 %; Platelet Count 257 k/uL (150-450); RBC 4.58 m/uL (3.80-5.40); RDW 12.4 % (11.5-15.5); WBC 4.8 k/uL (3.8-10.6)
[2019-12-01 16:47] LABS: Partial Thromboplastin Time 22.7 sec (22.0-30.0); Prothrombin Time 10.5 sec (9.0-12.0)
[2019-12-01 16:49] LABS: ALT 13 U/L (4-34); AST 20 U/L (14-36); African American GFR (CKD) >90 (>60 ml/min/1.73 sqM); Alkaline Phosphatase 86 U/L (38-126); Amylase 73 U/L (30-110); Anion Gap 9 mmol/L; Blood Urea Nitrogen 16 mg/dL (7-17); Carbon Dioxide 23 mmol/L (22-30); Chloride 104 mmol/L (98-107); Glucose 87 mg/dL (74-99); Non-African American GFR(CKD) >90 (>60 ml/min/1.73 sqM); Potassium 4.2 mmol/L (3.5-5.1); Sodium 136 mmol/L (137-145); Total Bilirubin 0.6 mg/dL (0.2-1.3); Total Protein 7.4 g/dL (6.3-8.2)
[2019-12-01 16:50] LABS: Appearance,Urine Cloudy (Clear); Bacteria,Urine Many /hpf; Bilirubin,Urine Negative (Negative); Blood,Urine Negative (Negative); Budding Yeast,Urine Few /hpf; Color,Urine Yellow; Glucose,Urine (UA) Negative (Negative); Ketones,Urine 1+ (Negative); Leukocyte Esterase,Urine Large (Negative); Mucus,Urine Occasional /hpf; Nitrite,Urine Positive (Negative); Protein,Urine Trace (Negative); RBC,Urine 1 /hpf (0-5); Specific Gravity,Urine 1.018 (1.001-1.035); Squamous Epithelial Cell,Urine <1 /hpf (0-4); Urobilinogen,Urine <2.0 mg/dL (<2.0); WBC,Urine 73 /hpf (0-5)
--- NOTE | 2019-12-01 17:38 | CT ---
EXAMINATION TYPE: CT abdomen pelvis w con DATE OF EXAM: 12/01/2019 COMPARISON: None INDICATION: Abdominal pain, constipation, pt states hx IBS. DLP: 539.4 mGycm, Automated exposure control for dose reduction was used. CONTRAST: 100 mL of Isovue 300. Study performed without Oral Contrast TECHNIQUE: Axial images were obtained from above the diaphragm to the pubic rami in the axial plane a t 5 mm thick sections. Reconstructed images are reviewed on the computer in the coronal plane. FINDINGS: Limited CT sections are obtained the lung bases. The lung bases are clear. CT ABDOMEN: Liver: Normal Spleen: Normal Pancreas: Normal Adrenal glands: The adrenal glands are normal. Gallbladder: Normal Kidneys: No masses are evident. No hydronephrosis is present. There is a 5.4 cm cyst measuring 68 [place] units in the superior lateral right kidney. Delayed images were obtained through the kidne ys, which remain unremarkable. Aorta: Normal Inferior vena cava: Normal. CT PELVIS: Scoliosis is through the lumbar spine. There are multiple fluid-filled small bowel loops and colon. No suspicious transition point to sugges t obstruction is evident. Consider ileus. Study is without oral contrast limiting evaluation. Appendix: Normal as visualized. Urinary bladder: Normal. Genitourinary structures: Uterus is not identified. Adnexal regions appear clear. Osseous structures: No suspicious lytic or sclerotic lesions. IMPRESSIONS: 1. Clinical consideration for ileus is recommended.
[2019-12-01] MEDS ORDERED: cefTRIAXone IN SWFI 1,000 MG/10 ML SYRINGE IVP STA (18:06)
[2019-12-01] MEDS ORDERED: NA PHOS,M-B/NA PHOS,DI-BA 133 ML ENEMA RECTAL STA (18:18)
== END 2019-12-01 18:36 | disposition home or self-care (01) ==
LOC: EC 15:57
DX: N39.0 Urinary tract infection, site not specified (principal); K59.00 Constipation, unspecified; R11.2 Nausea with vomiting, unspecified; M79.7 Fibromyalgia; G40.909 Epilepsy, unspecified, not intractable, without status epilepticus; Z90.710 Acquired absence of both cervix and uterus; Z87.19 Personal history of other diseases of the digestive system; Z79.1 Long term (current) use of non-steroidal anti-inflammatories (NSAID); Z79.891 Long term (current) use of opiate analgesic; Z79.899 Other long term (current) drug therapy; Z88.1 Allergy status to other antibiotic agents; Z88.8 Allergy status to other drugs, medicaments and biological substances; Z88.5 Allergy status to narcotic agent
CPT/HCPCS: 36415; 80053; 82150; 83605; 83690; 85025; 85610; 85730; 81001; 87040; 87086; 74177; 99284; 96374; 96375 ×2; 96361; J2405; J0696; J1885; Q9967; 87077; 87186

== ENCOUNTER 2020-05-16 12:41 | Emergency (ER) | payer MEDICARE, OTHER ==
[2020-05-16 13:03] VITALS: RESP 18; TEMP 99.6
--- NOTE | 2020-05-16 13:33 | ED ---
Fever HPI - General Chief Complaint: Fever Stated Complaint: Fever, Body Aches Time Seen by Provider: 05/16/20 13:06 Source: patient, RN notes reviewed Mode of arrival: ambulatory Limitations: no limitations - History of Present Illness Initial Comments: 45-year-old female presents emergency Department chief complaint of fever bodyaches cough, nausea. Patient states that she was fine yesterday but developed during the night. Patient states she is very achy had toe. Patient states that she's had no sick contacts. Denies any prior cardiac or lung d isease. Patient has underlying seizure disorder. Patient denies any chance denies any other complaints. - Related Data Home Medications Medication Instructions Recorded Confirmed Primidone [Mysoline] 50 mg PO TID 02/24/14 05/16/20 Gabapentin [Neurontin] 400 mg PO TID 02/12/17 05/16/20 Loratadine [Claritin] 10 mg PO DAILY 02/12/17 05/16/20 Esomeprazole Magnesium 20 mg PO DAILY PRN 12/01/19 05/16/20 Famotidine 20 mg PO DAILY 12/01/19 05/16/20 PARoxetine HCL 40 mg PO DAILY 12/01/19 05/16/20 Travoprost [Travatan Z 0.004%] 1 drop BOTH EYES HS 12/01/19 05/16/20 hydrOXYzine pamoate [hydrOXYzine 25 mg PO BID PRN 12/01/19 05/16/20 PAMOATE] Fluticasone Nasal [place] [Flonase 1 spray EA NOSTRIL DAILY PRN 05/16/20 05/16/20 Nasal [place]] Metoclopramide [Reglan] 10 mg PO Q6H PRN 05/16/20 05/16/20 Naproxen 500 mg PO BID PRN 05/16/20 05/16/20 Ondansetron [Zofran] 4 mg PO DAILY PRN 05/16/20 05/16/20 Polyethylene Glycol 3350 [Miralax] 17 gm PO DAILY 05/16/20 05/16/20 lamoTRIgine [LaMICtal] 50 mg PO TID 05/16/20 05/16/20 oxyCODONE-APAP 5-325MG [Percocet 1 tab PO BID PRN 05/16/20 05/16/20 5-325 mg] Previous Rx's Medication Instructions Recorded Meclizine [Antivert] 25 mg PO TID tab 01/11/15 Cephalexin [Keflex] 500 mg PO Q8HR #21 cap 05/16/20 Allergies Allergy/AdvReac Type Severity Reaction Status Date / Time bee venom protein (honey bee) Allergy Unknown Verified 05/16/20 13:59 clarithromycin [From Biaxin] AdvReac SEIZURES Verified 05/16/20 13:59 clonazepam [From Klonopin] AdvReac SEIZURES Verified 05/16/20 13:59 codeine AdvReac SEIZURES Verified 05/16/20 13:59 diphenhydramine HCl AdvReac SEIZURES Verified 05/16/20 13:59 [From Benadryl] hydrocodone bitartrate AdvReac SEIZURES Verified 05/16/20 13:59 [From Vicodin] meperidine HCl [From Demerol] AdvReac SEIZURES Verified 05/16/20 13:59 pregabalin [From Lyrica] AdvReac SEIZURES Verified 05/16/20 13:59 propoxyphene napsylate AdvReac SEIZURES Verified 05/16/20 13:59 [From Darvocet-N] Review of Systems ROS Statement: Those systems with pertinent positive or pertinent negative responses have been documented in the HPI. ROS Other: All systems not noted in ROS Statement are negative. Past Medical History Past Medical History: Fibromyalgia, Neurologic Disorder, Seizure Disorder Additional Past Medical History / Comment(s): tremors. back pain History of Any Multi-Drug Resistant Organisms: None Reported Past Surgical History: Hysterectomy, Orthopedic Surgery Additional Past Surgical History / Comment(s): rt wrist and shoulder Past Psychological History: No Psychological Hx Reported Past Alcohol Use History: None Reported Past Drug Use History: Marijuana General Exam Limitations: no limitations General appearance: alert, in no apparent distress Head exam: Present: atraumatic, normocephalic, normal inspection Eye exam: Present: normal appearance, PERRL, EOMI. Absent: scleral icterus, conjunctival injection, periorbital swelling ENT exam: Present: normal exam, normal oropharynx, mucous membranes moist, TM's normal bilaterally Neck exam: Present: normal inspection, full ROM. Absent: tenderness, meningismus, lymphadenopathy Respiratory exam: Present: normal lung sounds bilaterally. Absent: respiratory distress, wheezes, rales, rhonchi, stridor Cardiovascular Exam: Present: regular rate, normal rhythm, normal heart sounds. Absent: systolic murmur, diastolic murmur, rubs, gallop, clicks GI/Abdominal exam: Present: soft, tenderness (Mild diffuse), normal bowel sounds. Absent: distended, guarding, rebound, rigid Back exam: Absent: CVA tenderness (R), CVA tenderness (L) Neurological exam: Present: alert, oriented X3 Skin exam: Present: warm, dry, intact, normal color. Absent: rash Course Vital Signs 05/16/20 13:00 Temperature 99.6 F Pulse Rate 98 Respiratory 18 Rate Blood Pressure 103/71 O2 Sat by Pulse 98 Oximetry Medical Decision Making - Medical Decision Making 45-year-old female presented for fever, not feeling well. Patient's found to have urinary tract infection. Patient was given 1 g of Rocephin. Patient discharged on oral antibiotics. Patient's main labs, swabs are negative. - Lab Data Result diagrams: 05/16/20 13:28 05/16/20 13:28 Lab Results 05/16/20 05/16/20 05/16/20 Range/Units 13:28 13:28 13:28 WBC 9.0 (3.8-10.6) k/uL RBC 4.34 (3.80-5.40) m/uL Hgb 14.0 (11.4-16.0) gm/dL Hct 41.0 (34.0-46.0) % MCV 94.6 (80.0-100.0) fL MCH 32.3 (25.0-35.0) pg MCHC 34.2 (31.0-37.0) g/dL RDW 11.7 (11.5-15.5) % Plt Count 253 (150-450) k/uL MPV 6.5 Neutrophils % 87 % Lymphocytes % 8 % Monocytes % 4 % Eosinophils % 1 % Basophils % 0 % Neutrophils # 7.8 H (1.3-7.7) k/uL Lymphocytes # 0.7 L (1.0-4.8) k/uL Monocytes # 0.3 (0-1.0) k/uL Eosinophils # 0.1 (0-0.7) k/uL Basophils # 0.0 (0-0.2) k/uL PT (9.0-12.0) sec INR (<1.2) APTT (22.0-30.0) sec Sodium 137 (137-145) mmol/L Potassium 4.1 (3.5-5.1) mmol/L Chloride 104 (98-107) mmol/L Carbon Dioxide 29 (22-30) mmol/L Anion Gap 4 mmol/L BUN 15 (7-17) mg/dL Creatinine 0.65 (0.52-1.04) mg/dL Est GFR (CKD-EPI)AfAm >90 (>60 ml/min/1.73 sqM) Est GFR (CKD-EPI)NonAf >90 (>60 ml/min/1.73 sqM) Glucose 112 H (74-99) mg/dL Plasma Lactic Acid Garcia 0.7 (0.7-2.0) mmol/L Calcium 9.3 (8.4-10.2) mg/dL Total Bilirubin 0.3 (0.2-1.3) mg/dL AST 22 (14-36) U/L ALT 21 (4-34) U/L Alkaline Phosphatase 71 (38-126) U/L Troponin I (0.000-0.034) ng/mL C-Reactive Protein 7.6 (<10.0) mg/L Total Protein 7.0 (6.3-8.2) g/dL Albumin 4.4 (3.5-5.0) g/dL Lipase 133 (23-300) U/L Urine Color Urine Appearance (Clear) Urine pH (5.0-8.0) Ur Specific [place] (1.001-1.035) Urine Protein (Negative) Urine Glucose (UA) (Negative) Urine Ketones (Negative) Urine Blood (Negative) Urine Nitrite (Negative) Urine Bilirubin (Negative) Urine Urobilinogen (<2.0) mg/dL Ur Leukocyte Esterase (Negative) Urine RBC (0-5) /hpf Urine WBC (0-5) /hpf Ur Squamous Epith Cells (0-4) /hpf Urine Bacteria (None) /hpf Urine Mucus (None) /hpf Coronavirus (PCR) (Not Detectd) Influenza Type A RNA (Not Detectd) Influenza Type B (PCR) (Not Detectd) 05/16/20 05/16/20 05/16/20 Range/Units 13:28 13:28 13:30 WBC (3.8-10.6) k/uL RBC (3.80-5.40) m/uL Hgb (11.4-16.0) gm/dL Hct (34.0-46.0) % MCV (80.0-100.0) fL MCH (25.0-35.0) pg MCHC (31.0-37.0) g/dL RDW (11.5-15.5) % Plt Count (150-450) k/uL MPV Neutrophils % % Lymphocytes % % Monocytes % % Eosinophils % % Basophils % % Neutrophils # (1.3-7.7) k/uL Lymphocytes # (1.0-4.8) k/uL Monocytes # (0-1.0) k/uL Eosinophils # (0-0.7) k/uL Basophils # (0-0.2) k/uL PT 9.6 (9.0-12.0) sec INR 0.9 (<1.2) APTT 23.2 (22.0-30.0) sec Sodium (137-145) mmol/L Potassium (3.5-5.1) mmol/L Chloride (98-107) mmol/L Carbon Dioxide (22-30) mmol/L Anion Gap mmol/L BUN (7-17) mg/dL Creatinine (0.52-1.04) mg/dL Est GFR (CKD-EPI)AfAm (>60 ml/min/1.73 sqM) Est GFR (CKD-EPI)NonAf (>60 ml/min/1.73 sqM) Glucose (74-99) mg/dL Plasma Lactic Acid Garcia (0.7-2.0) mmol/L Calcium (8.4-10.2) mg/dL Total Bilirubin (0.2-1.3) mg/dL AST (14-36) U/L ALT (4-34) U/L Alkaline Phosphatase (38-126) U/L Troponin I <0.012 (0.000-0.034) ng/mL C-Reactive Protein (<10.0) mg/L Total Protein (6.3-8.2) g/dL Albumin (3.5-5.0) g/dL Lipase (23-300) U/L Urine Color Urine Appearance (Clear) Urine pH (5.0-8.0) Ur Specific [place] (1.001-1.035) Urine Protein (Negative) Urine Glucose (UA) (Negative) Urine Ketones (Negative) Urine Blood (Negative) Urine Nitrite (Negative) Urine Bilirubin (Negative) Urine Urobilinogen (<2.0) mg/dL Ur Leukocyte Esterase (Negative) Urine RBC (0-5) /hpf Urine WBC (0-5) /hpf Ur Squamous Epith Cells (0-4) /hpf Urine Bacteria (None) /hpf Urine Mucus (None) /hpf Coronavirus (PCR) Not Detected (Not Detectd) Influenza Type A RNA (Not Detectd) Influenza Type B (PCR) (Not Detectd) 05/16/20 05/16/20 Range/Units 13:36 14:00 WBC (3.8-10.6) k/uL RBC (3.80-5.40) m/uL Hgb (11.4-16.0) gm/dL Hct (34.0-46.0) % MCV (80.0-100.0) fL MCH (25.0-35.0) pg MCHC (31.0-37.0) g/dL RDW (11.5-15.5) % Plt Count (150-450) k/uL MPV Neutrophils % % Lymphocytes % % Monocytes % % Eosinophils % % Basophils % % Neutrophils # (1.3-7.7) k/uL Lymphocytes # (1.0-4.8) k/uL Monocytes # (0-1.0) k/uL Eosinophils # (0-0.7) k/uL Basophils # (0-0.2) k/uL PT (9.0-12.0) sec INR (<1.2) APTT (22.0-30.0) sec Sodium (137-145) mmol/L Potassium (3.5-5.1) mmol/L Chloride (98-107) mmol/L Carbon Dioxide (22-30) mmol/L Anion Gap mmol/L BUN (7-17) mg/dL Creatinine (0.52-1.04) mg/dL Est GFR (CKD-EPI)AfAm (>60 ml/min/1.73 sqM) Est GFR (CKD-EPI)NonAf (>60 ml/min/1.73 sqM) Glucose (74-99) mg/dL Plasma Lactic Acid Garcia (0.7-2.0) mmol/L Calcium (8.4-10.2) mg/dL Total Bilirubin (0.2-1.3) mg/dL AST (14-36) U/L ALT (4-34) U/L Alkaline Phosphatase (38-126) U/L Troponin I (0.000-0.034) ng/mL C-Reactive Protein (<10.0) mg/L Total Protein (6.3-8.2) g/dL Albumin (3.5-5.0) g/dL Lipase (23-300) U/L Urine Color Yellow Urine Appearance Cloudy H (Clear) Urine pH 7.0 (5.0-8.0) Ur Specific [place] 1.020 (1.001-1.035) Urine Protein Trace H (Negative) Urine Glucose (UA) Negative (Negative) Urine Ketones Negative (Negative) Urine Blood Negative (Negative) Urine Nitrite Positive H (Negative) Urine Bilirubin Negative (Negative) Urine Urobilinogen <2.0 (<2.0) mg/dL Ur Leukocyte Esterase Moderate H (Negative) Urine RBC 3 (0-5) /hpf Urine WBC 20 H (0-5) /hpf Ur Squamous Epith Cells 1 (0-4) /hpf Urine Bacteria Many H (None) /hpf Urine Mucus Rare H (None) /hpf Coronavirus (PCR) (Not Detectd) Influenza Type A RNA Not Detected (Not Detectd) Influenza Type B (PCR) Not Detected (Not Detectd) Disposition Clinical Impression: Urinary tract infection Disposition: HOME SELF-CARE Condition: Stable Instructions (If sedation given, give patient instructions): Urinary Tract Infection in Women (ED) Additional Instructions: Please return to the Emergency Department if symptoms worsen or any other concerns. Prescriptions: Cephalexin [Keflex] 500 mg PO Q8HR #21 cap Is patient prescribed a controlled substance at d/c from ED?: No Referrals: Sammy Peters MD [Primary Care Provider] - 1-2 days Time of Disposition: 14:52
[2020-05-16 13:44] LABS: Basophils % (A) 0 %; Eosinophils # (A) 0.1 k/uL (0-0.7); Eosinophils % (A) 1 %; Lymphocytes # (A) 0.7 k/uL (1.0-4.8); Lymphocytes % (A) 8 %; MCH 32.3 pg (25.0-35.0); MCHC 34.2 g/dL (31.0-37.0); MCV 94.6 fL (80.0-100.0); Mean Platelet Volume 6.5; Monocytes # (A) 0.3 k/uL (0-1.0); Monocytes % (A) 4 %; Neutrophils # (A) 7.8 k/uL (1.3-7.7); Neutrophils % (A) 87 %; Platelet Count 253 k/uL (150-450); RBC 4.34 m/uL (3.80-5.40); RDW 11.7 % (11.5-15.5)
--- NOTE | 2020-05-16 13:58 | XR ---
EXAMINATION TYPE: XR chest 2V DATE OF EXAM: 05/16/2020 COMPARISON: Prior chest x-ray 04/05/2019 HISTORY: Fever, body aches TECHNIQUE: Frontal and lateral views of the chest are obtained. FINDINGS: There is no focal air space opacity, pleural effusion, or pneumothorax seen. The cardiac silhouette size is within normal limits. The osseous structures are intact, there is an underlying thoracic lumbar scoliosis which is S-shaped similar to prior exam. IMPRESSION: No acute cardiopulmonary process.
[2020-05-16 14:01] LABS: ALT 21 U/L (4-34); AST 22 U/L (14-36); African American GFR (CKD) >90 (>60 ml/min/1.73 sqM); Albumin 4.4 g/dL (3.5-5.0); Anion Gap 4 mmol/L; Blood Urea Nitrogen 15 mg/dL (7-17); Calcium 9.3 mg/dL (8.4-10.2); Carbon Dioxide 29 mmol/L (22-30); Chloride 104 mmol/L (98-107); Glucose 112 mg/dL (74-99); Non-African American GFR(CKD) >90 (>60 ml/min/1.73 sqM); Potassium 4.1 mmol/L (3.5-5.1); Sodium 137 mmol/L (137-145); Total Bilirubin 0.3 mg/dL (0.2-1.3)
[2020-05-16 14:02] LABS: Alkaline Phosphatase 71 U/L (38-126); C Reactive Protein 7.6 mg/L (<10.0); Lipase 133 U/L (23-300)
[2020-05-16 14:03] LABS: INR 0.9 (<1.2); Partial Thromboplastin Time 23.2 sec (22.0-30.0); Prothrombin Time 9.6 sec (9.0-12.0)
[2020-05-16 14:21] LABS: Appearance,Urine Cloudy (Clear); Bacteria,Urine Many /hpf; Bilirubin,Urine Negative (Negative); Blood,Urine Negative (Negative); Color,Urine Yellow; Glucose,Urine (UA) Negative (Negative); Ketones,Urine Negative (Negative); Leukocyte Esterase,Urine Moderate (Negative); Mucus,Urine Rare /hpf; Nitrite,Urine Positive (Negative); Protein,Urine Trace (Negative); RBC,Urine 3 /hpf (0-5); Squamous Epithelial Cell,Urine 1 /hpf (0-4); Urobilinogen,Urine <2.0 mg/dL (<2.0); WBC,Urine 20 /hpf (0-5)
[2020-05-16] MEDS ORDERED: cefTRIAXone IN SWFI 1,000 MG/10 ML SYRINGE IVP STA (14:44)
[2020-05-16 15:33] VITALS: BP 104/77; PULSE 86
== END 2020-05-16 15:40 | disposition home or self-care (01) ==
LOC: EC 12:41
DX: N39.0 Urinary tract infection, site not specified (principal); M79.7 Fibromyalgia; G40.909 Epilepsy, unspecified, not intractable, without status epilepticus; Z79.899 Other long term (current) drug therapy; Z91.030 Bee allergy status; Z88.1 Allergy status to other antibiotic agents; Z88.5 Allergy status to narcotic agent; Z88.8 Allergy status to other drugs, medicaments and biological substances; Z20.828 Contact with and (suspected) exposure to other viral communicable diseases
CPT/HCPCS: 36415; 93005; 80053; 83605; 83690; 84484; 85025; 85610; 85730; 86140; 81001; 87086; 87502; 87635; 71046; 99283; 96374; J0696

== ENCOUNTER → 2021-01-03 | Outpatient (CLI) | payer MEDICARE, OTHER ==
--- NOTE | 2021-01-04 08:22 | XR ---
EXAMINATION TYPE: XR elbow limited bilateral DATE OF EXAM: 01/03/2021 COMPARISON: NONE HISTORY: Pain FINDINGS: Two views of the bilateral elbow demonstrate no pathologic joint effusion. The osseous structures ar e intact. There is no acute fracture or dislocation. IMPRESSION: 1. No acute fracture or dislocation. If symptoms persist follow-up study in 7 to 10 days could be ob tained.
--- NOTE | 2021-01-04 08:28 | XR ---
EXAMINATION TYPE: XR forearm bilateral DATE OF EXAM: 01/03/2021 COMPARISON: NONE HISTORY: Pain Two views of the forearm demonstrate that the osseous structures appear to be intact and the joint sp aces appear to be preserved. There is no acute fracture or dislocation. IMPRESSION: 1. No acute fracture or dislocation
--- NOTE | 2021-01-04 08:29 | XR ---
EXAMINATION TYPE: XR shoulder complete BILAT DATE OF EXAM: 01/03/2021 COMPARISON: NONE HISTORY: Pain TECHNIQUE: Three views are submitted. FINDINGS: The osseous structures are intact. There is no acute fracture or dislocation. Mild AC joint arthropa thy bilaterally. IMPRESSION: 1. Mild AC joint arthropathy bilaterally
--- NOTE | 2021-01-04 08:30 | XR ---
EXAMINATION TYPE: XR wrist complete BILATERAL DATE OF EXAM: 01/03/2021 COMPARISON: NONE HISTORY: Pain TECHNIQUE: Four views of bilateral wrist is submitted. FINDINGS: The osseous structures are intact. The joint spaces are preserved and there is no acute fracture or dislocation. IMPRESSION: 1. No definite acute fracture or dislocation if symptoms persist, follow-up study in 7 to 10 days wo uld be suggested
--- NOTE | 2021-01-04 08:31 | XR ---
EXAMINATION TYPE: XR hand complete bilateral DATE OF EXAM: 01/03/2021 COMPARISON: NONE HISTORY: Pain TECHNIQUE: Three views of bilateral hand are submitted. FINDINGS: The osseous structures are intact. The joint spaces are preserved and there is no acute fracture or dislocation. IMPRESSION: 1. No definite acute fracture or dislocation if symptoms persist, follow-up study in 7 to 10 days wo uld be suggested
--- NOTE | 2021-01-04 08:32 | XR ---
EXAMINATION TYPE: XR humerus bilateral DATE OF EXAM: 01/03/2021 COMPARISON: NONE HISTORY: Pain TECHNIQUE: 2 views submitted. FINDINGS: The osseous structures are intact and the joint spaces are preserved. Mild AC joint arthropathy note d. Findings greater on the left. IMPRESSION: 1. AC joint arthropathy.
== END | disposition home or self-care (01) ==
LOC: RADXRMAIN 15:23
PROVIDERS: ATTEND Pediatrics
DX: M25.521 Pain in right elbow (principal); M25.522 Pain in left elbow; M79.631 Pain in right forearm; M79.632 Pain in left forearm; M19.011 Primary osteoarthritis, right shoulder; M19.012 Primary osteoarthritis, left shoulder; M25.531 Pain in right wrist; M25.532 Pain in left wrist; M79.641 Pain in right hand; M79.642 Pain in left hand

== ENCOUNTER → 2021-02-24 | Outpatient (CLI) | payer MEDICARE, OTHER ==
--- NOTE | 2021-02-28 10:20 | MM ---
Reason for exam: screening (asymptomatic). Last mammogram was performed 4 years and 9 months ago. History: Patient history of other cancer. Benign left mammotome panel of the left breast, April 09, 2011. Physical Findings: A clinical breast exam by your physician is recommended on an annual basis and results should be correlated with mammographic findings. MG 3D Screening Mammo W/Cad Bilateral CC and MLO view(s) were taken. Prior study comparison: June 04, 2016, bilateral MG 3d screening mammo w/cad. The breast tissue is heterogeneously dense. This may lower the sensitivity of mammography. No significant changes when compared with prior studies. ASSESSMENT: Benign, BI-RAD 2 RECOMMENDATION: Routine screening mammogram of both breasts in 1 year.
== END | disposition home or self-care (01) ==
LOC: RADMAMWWP 12:46
PROVIDERS: ATTEND Obstetrics & Gynecology
DX: Z12.31 Encounter for screening mammogram for malignant neoplasm of breast (principal)
CPT/HCPCS: 77063; 77067

== ENCOUNTER 2021-11-15 10:25 | Emergency (ER) | payer MEDICARE, OTHER ==
[2021-11-15 10:34] VITALS: BP 114/69; PULSE 83; RESP 18; TEMP 98.2
--- NOTE | 2021-11-15 10:43 | ED ---
General Adult HPI - General Chief complaint: Extremity Injury, Lower Stated complaint: Food injury Time Seen by Provider: 11/15/21 10:39 Source: patient Mode of arrival: ambulatory Limitations: no limitations - History of Present Illness Initial comments: Patient is a 46-year-old female presents to the emergency room after running after her dog and hitting her right foot on rough terrain after her left leg got stuck in the mud. She reports that after the event happened she had significant swelling and bruising to her right foot primarily proximal to her great toe. She reports that initially the foot was very swollen and there was some numbness in her toe but now the swelling has improved and the ecchymosis is slowly improving however she continues to have a significant amount of pain and range of motion impairment to her right great toe. Her sister fractured her foot a not long ago and had a surgical Plate immobilizing boot available to wear that she has been wearing it. She denies any ankle pain, fall or other significant trauma to the joint. She has a past medical history significant for fibromyalgia and seizures. She denies any recent seizure activity. She denies any other complaints or concerns at this time. - Related Data Home Medications Medication Instructions Recorded Confirmed Primidone [Mysoline] 50 mg PO TID 02/24/14 05/16/20 Gabapentin [Neurontin] 400 mg PO TID 02/12/17 05/16/20 Loratadine [Claritin] 10 mg PO DAILY 02/12/17 05/16/20 Esomeprazole Magnesium 20 mg PO DAILY PRN 12/01/19 05/16/20 Famotidine 20 mg PO DAILY 12/01/19 05/16/20 PARoxetine HCL 40 mg PO DAILY 12/01/19 05/16/20 Travoprost [Travatan Z 0.004%] 1 drop BOTH EYES HS 12/01/19 05/16/20 hydrOXYzine pamoate [hydrOXYzine 25 mg PO BID PRN 12/01/19 05/16/20 PAMOATE] Fluticasone Nasal [place] [Flonase 1 spray EA NOSTRIL DAILY PRN 05/16/20 05/16/20 Nasal [place]] Metoclopramide [Reglan] 10 mg PO Q6H PRN 05/16/20 05/16/20 Naproxen 500 mg PO BID PRN 05/16/20 05/16/20 Ondansetron [Zofran] 4 mg PO DAILY PRN 05/16/20 05/16/20 lamoTRIgine [LaMICtal] 50 mg PO TID 05/16/20 05/16/20 oxyCODONE-APAP 5-325MG [Percocet 1 tab PO BID PRN 05/16/20 05/16/20 5-325 mg] polyethylene glycoL 3350 [Miralax] 17 gm PO DAILY 05/16/20 05/16/20 Previous Rx's Medication Instructions Recorded Meclizine [Antivert] 25 mg PO TID tab 01/11/15 Cephalexin [Keflex] 500 mg PO Q8HR #21 cap 05/16/20 Allergies Allergy/AdvReac Type Severity Reaction Status Date / Time bee venom protein (honey bee) Allergy Unknown Verified 11/15/21 10:34 clarithromycin [From Biaxin] AdvReac SEIZURES Verified 11/15/21 10:34 clonazepam [From Klonopin] AdvReac SEIZURES Verified 11/15/21 10:34 codeine AdvReac SEIZURES Verified 11/15/21 10:34 diphenhydramine HCl AdvReac SEIZURES Verified 11/15/21 10:34 [From Benadryl] hydrocodone bitartrate AdvReac SEIZURES Verified 11/15/21 10:34 [From Vicodin] meperidine HCl [From Demerol] AdvReac SEIZURES Verified 11/15/21 10:34 pregabalin [From Lyrica] AdvReac SEIZURES Verified 11/15/21 10:34 propoxyphene napsylate AdvReac SEIZURES Verified 11/15/21 10:34 [From Darvocet-N] Review of Systems ROS Statement: Those systems with pertinent positive or pertinent negative responses have been documented in the HPI. ROS Other: All systems not noted in ROS Statement are negative. Past Medical History Past Medical History: Fibromyalgia, Neurologic Disorder, Seizure Disorder Additional Past Medical History / Comment(s): tremors. back pain History of Any Multi-Drug Resistant Organisms: None Reported Past Surgical History: Hysterectomy, Orthopedic Surgery Additional Past Surgical History / Comment(s): rt wrist and shoulder Past Psychological History: No Psychological Hx Reported Smoking Status: Former smoker Past Alcohol Use History: None Reported Past Drug Use History: Marijuana General Exam Limitations: no limitations General appearance: alert, in no apparent distress Head exam: Present: atraumatic, normocephalic, normal inspection Eye exam: Present: normal appearance, PERRL, EOMI. Absent: scleral icterus, conjunctival injection, periorbital swelling ENT exam: Present: normal exam, mucous membranes moist Neck exam: Present: normal inspection. Absent: tenderness, meningismus, lymphadenopathy Respiratory exam: Present: normal lung sounds bilaterally. Absent: respiratory distress, wheezes, rales, rhonchi, stridor Cardiovascular Exam: Present: regular rate, normal rhythm, normal heart sounds. Absent: systolic murmur, diastolic murmur, rubs, gallop, clicks Right Lower Leg exam: Present: normal inspection Ankle exam: Present: normal inspection Foot/Toe exam: Present: tenderness, swelling, ecchymosis. Absent: full ROM Neurovascular tendon exam: Present: no vascular compromise Neurological exam: Present: alert, oriented X3, CN II-XII intact Psychiatric exam: Present: normal affect, normal mood Skin exam: Present: warm, dry, intact, other (Ecchymosis right foot) Course Vital Signs 11/15/21 10:31 Temperature 98.2 F Pulse Rate 83 Respiratory 18 Rate Blood Pressure 114/69 O2 Sat by Pulse 97 Oximetry Medical Decision Making - Medical Decision Making Will check x-ray of the right foot. Denies analgesic needed at this time. No need other diagnostic testing her laboratory studies at this time. X-ray negative for fracture or acute osseous processes. Advise contusion to foot. Encouraged range of motion as tolerated ice and analgesics as previously prescribed by PCP. Case discussed with Dr. Gooden. - Radiology Data Radiology results: report reviewed, image reviewed X-ray right foot complete: No acute osseous abnormalities Disposition Clinical Impression: Contusion of foot Disposition: HOME SELF-CARE Condition: Good Instructions (If sedation given, give patient instructions): Foot Contusion (ED) Additional Instructions: Range of motion as tolerated encouraged. Utilize ice as needed for pain along with pain medication previously prescribed by her primary care provider. Please return to the Emergency Department if symptoms worsen or any other concerns. Is patient prescribed a controlled substance at d/c from ED?: No Referrals: Sammy Peters MD [Primary Care Provider] - 1-2 days Time of Disposition: 11:17
--- NOTE | 2021-11-15 11:08 | XR ---
EXAMINATION TYPE: XR foot complete RT DATE OF EXAM: 11/15/2021 COMPARISON: None HISTORY: Pain injury 6 days prior TECHNIQUE: 3 view right foot FINDINGS: Mild hallux valgus deformity is present. No acute fractures or dislocations are evident. Giovana int spaces otherwise appear preserved. Soft tissues appear normal. Follow-up can be performed as clin ically indicated. IMPRESSION: 1. No acute osseous abnormality right foot.
== END 2021-11-15 11:26 | disposition home or self-care (01) ==
LOC: EC 10:25
DX: S90.32XA Contusion of left foot, initial encounter (principal); F17.200 Nicotine dependence, unspecified, uncomplicated; Z91.030 Bee allergy status; Z88.8 Allergy status to other drugs, medicaments and biological substances; Z88.6 Allergy status to analgesic agent; Z88.9 Allergy status to unspecified drugs, medicaments and biological substances; Z88.5 Allergy status to narcotic agent; Z91.048 Other nonmedicinal substance allergy status; W01.0XXA Fall on same level from slipping, tripping and stumbling without subsequent striking against object, initial encounter

== ENCOUNTER → 2021-12-08 | Outpatient (CLI) | payer MEDICARE, OTHER ==
--- NOTE | 2021-12-08 12:18 | MR ---
EXAMINATION TYPE: MR knee LT wo con DATE OF EXAM: 12/08/2021 COMPARISON: None HISTORY: LEFT KNEE PAIN TECHNIQUE: Multiplanar, multisequence imaging of the left knee is performed without IV contrast. FINDINGS: MEDIAL MENISCUS: Anterior and posterior horns are intact without tear. LATERAL MENISCUS: Anterior and posterior horns are intact without tear. CRUCIATE LIGAMENTS: The anterior and posterior cruciate ligaments are intact and unremarkable. COLLATERAL LIGAMENTS: The medial collateral ligament and lateral collateral ligament complex are inta ct and unremarkable. EXTENSOR MECHANISM: Visualized quadriceps and patellar tendons are intact. EFFUSION: No significant suprapatellar joint effusion. POPLITEAL CYST: No popliteal/fnin cyst. TRICOMPARTMENT SPACES: Intact CARTILAGE: Intact BONE MARROW SIGNAL: No focal abnormal marrow signal is appreciated. OTHER: No additional significant abnormality is appreciated. IMPRESSION: No significant abnormality appreciated.
== END | disposition home or self-care (01) ==
LOC: RADMRIMAIN 10:52
PROVIDERS: ATTEND Orthopaedic Surgery
DX: M25.562 Pain in left knee (principal)

== ENCOUNTER → 2022-06-01 | Outpatient (CLI) | payer MEDICARE, OTHER ==
--- NOTE | 2022-06-04 08:54 | MM ---
Reason for Exam: Screening (asymptomatic). Last mammogram was performed 1 year(s) and 3 month(s) ago. Patient History: Menarche at age 13. First Full-Term at age 19. Hysterectomy at age 25. Other cancer. Progesterone, from age 43 until age 45. 04/09/2011, Benign Core Biopsy on the left side. Risk Values: Hannah 5 year model risk: 0.9%. NCI Lifetime model risk: 8.1%. Prior Study Comparison: 06/01/2015 Bilateral Screening Mammogram, [facility]. 06/04/2016 Bilateral Screening Mammogram, [facility]. 02/24/2021 Bilateral Screening Mammogram, [facility]. Tissue Density: The breast tissue is heterogeneously dense. This may lower the sensitivity of mammography. Findings: Analyzed By CAD. Pattern appears symmetrical and stable. A core marker is within the left breast. No suspicious groups of microcalcifications, spiculated or lobular masses, architectural distortion or other secondary signs of malignancy are mammographically apparent. Overall Assessment: Benign, BI-RAD 2 Management: Screening Mammogram of both breasts in 1 year. A negative mammogram report should not preclude additional follow up of suspicious palpable abnormalities. Patient should continue monthly self breast exam. A clinical breast exam by your physician is recommended on an annual basis and results should be correlated with mammographic findings. Electronically signed and approved by: Zachary Underwood D.O. Radiologis
== END | disposition home or self-care (01) ==
LOC: RADMAMWWP 12:32
PROVIDERS: ATTEND Pediatrics
DX: Z12.31 Encounter for screening mammogram for malignant neoplasm of breast (principal); Z98.890 Other specified postprocedural states
CPT/HCPCS: 77063; 77067

== ENCOUNTER → 2023-06-20 | Outpatient (CLI) | payer MEDICARE, OTHER ==
--- NOTE | 2023-06-20 12:19 | MM ---
Reason for Exam: Screening (asymptomatic). Last mammogram was performed 1 year(s) and 1 month(s) ago. Patient History: Menarche at age 13. First Full-Term at age 19. Hysterectomy at age 25. Progesterone, from age 43 until age 45. 04/09/2011, Benign Core Biopsy on the left side. Risk Values: Hannah 5 year model risk: 0.9%. NCI Lifetime model risk: 8.0%. Prior Study Comparison: 06/04/2016 Bilateral Screening Mammogram, [facility]. 02/24/2021 Bilateral Screening Mammogram, [facility]. 06/01/2022 Bilateral MG 3D screening mammo w/cad, [facility]. Tissue Density: The breast tissue is heterogeneously dense. This may lower the sensitivity of mammography. Findings: Analyzed By CAD. There is no suspicious group of microcalcifications or new suspicious mass. Overall Assessment: Negative, BI-RAD 1 Management: Screening Mammogram of both breasts in [address] [facility] will attempt to contact patient to return for supplemental views and ultrasound if indicated. Patient should continue monthly self-breast exams. A clinical breast exam by your physician is recommended on an annual basis. This exam should not preclude additional follow-up of suspicious palpable abnormalities. Note on Hannah scores and lifetime risk: 1. A Hannah score greater than 3% is considered moderate risk. If this is the case, consider specialist referral to assess eligibility for a risk reducing agent. 2. If overall lifetime risk for the development of breast cancer is 20% or higher, the patient may qualify for future screening with alternating mammogram and breast MRI. Electronically signed and approved by: Maverick Colindres DO
== END | disposition home or self-care (01) ==
LOC: RADMAMWWP 11:30
PROVIDERS: ATTEND Pediatrics
DX: Z12.31 Encounter for screening mammogram for malignant neoplasm of breast (principal)
CPT/HCPCS: 77063; 77067

== ENCOUNTER → 2024-01-04 | Outpatient (CLI) | payer MEDICARE, OTHER ==
--- NOTE | 2024-02-05 12:34 | MR ---
EXAMINATION TYPE: MR foot RT wo con DATE OF EXAM: 01/27/2024 COMPARISON: 11/15/2021 HISTORY: 49-year-old female fracture right hallux 2 years ago, nonhealing, pain TECHNIQUE: Multiplanar, multisequence images of the right forefoot and midfoot were obtained without IV contrast. FINDINGS: There is moderate degenerative change of the first MTP joint. There is mild hallux valgus along with bunion formation. There is edema within the medial sesamoid bone. There is a 9 mm subchondral geode within the medial cuneiform at the level of the navicular cuneiform joint. No acute or healing fracture is identified. Small effusions within the intermetatarsal bursa at the first, second, and third web spaces. Incidental 1.6 cm ganglion cyst extending from the sinus tarsi seen on the sagittal sequence. The Lisfranc ligament is intact. IMPRESSION: 1. No acute or healing fracture is identified. If persistent concern, the exam can be reviewed with d irected attention. 2. 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 3. Edema within the tibial sesamoid bone. Finding can be seen with sesamoiditis. 4. Degenerative subchondral geode within the medial cuneiform at the navicular medial cuneiform joint . 5. Incidental 1.6 cm ganglion cyst extending from the sinus tarsi. [facility], Workstation: [id number], 02/05/2024 12:31 PM
== END | disposition home or self-care (01) ==
LOC: RADMRIMAIN 10:43
PROVIDERS: ATTEND Podiatrist
DX: S92.401A Displaced unspecified fracture of right great toe, initial encounter for closed fracture (principal); M19.071 Primary osteoarthritis, right ankle and foot; M20.11 Hallux valgus (acquired), right foot; M67.471 Ganglion, right ankle and foot

== ENCOUNTER → 2024-08-17 | Outpatient (CLI) | payer MEDICARE, OTHER ==
--- NOTE | 2024-08-17 13:50 | MM ---
Reason for Exam: Screening (asymptomatic). Last mammogram was performed 1 year(s) and 1 month(s) ago. Patient History: Menarche at age 13. First Full-Term at age 19. Hysterectomy at age 25. Postmenopausal. Progesterone, from age 43 until age 45. 04/09/2011, Benign Core Biopsy on the left side. Niece had ovarian cancer under age 50. Sister had ovarian cancer under age 50. Risk Values: Hannah 5 year model risk: 0.8%. NCI Lifetime model risk: 7.8%. Prior Study Comparison: 06/01/2015 Bilateral Screening Mammogram, [facility]. 06/04/2016 Bilateral Screening Mammogram, [facility]. 02/24/2021 Bilateral Screening Mammogram, [facility]. 06/01/2022 Bilateral MG 3D screening mammo w/cad, [facility]. 06/20/2023 Bilateral MG 3D screening mammo w/cad, [facility]. Tissue Density: The breasts are heterogeneously dense, which may obscure small masses. Findings: Analyzed By CAD. There is no suspicious group of microcalcifications or new suspicious mass in either breast. Asymmetric distortion upper outer left breast approximately 6.4 cm from the nipple. Additional views are recommended. Overall Assessment: Incomplete: need additional imaging evaluation, BI-RAD 0 Management: Diagnostic Mammogram of the left breast. . Patient should continue monthly self-breast exams. A clinical breast exam by your physician is recommended on an annual basis. This exam should not preclude additional follow-up of suspicious palpable abnormalities. Note on Hannah scores and lifetime risk: 1. A Hannah score greater than 3% is considered moderate risk. If this is the case, consider specialist referral to assess eligibility for a risk reducing agent. 2. If overall lifetime risk for the development of breast cancer is 20% or higher, the patient may qualify for future screening with alternating mammogram and breast MRI. [facility], , 08/17/2024 1:46 PM. Electronically signed and approved by: Louie Aguilar M.D. Radiologis
== END | disposition home or self-care (01) ==
LOC: RADMAMWWP 13:24
PROVIDERS: ATTEND Pediatrics
DX: Z12.31 Encounter for screening mammogram for malignant neoplasm of breast (principal); R92.333 Mammographic heterogeneous density, bilateral breasts; Z78.0 Asymptomatic menopausal state
CPT/HCPCS: 77063; 77067

== ENCOUNTER → 2024-08-21 | Outpatient (CLI) | payer MEDICARE, OTHER ==
--- NOTE | 2024-08-21 13:04 | USB ---
Reason for Exam: Additional evaluation requested from abnormal screening. Patient History: Menarche at age 13. First Full-Term at age 19. Hysterectomy at age 25. Postmenopausal. Progesterone, from age 43 until age 45. 04/09/2011, Benign Core Biopsy on the left side. Niece had ovarian cancer under age 50. Sister had endometrial cancer. Risk Values: Hannah 5 year model risk: 0.8%. NCI Lifetime model risk: 7.8%. Technique: Method: Targeted. Prior Study Comparison: 06/01/2022 Bilateral MG 3D screening mammo w/cad, [facility]. 06/20/2023 Bilateral MG 3D screening mammo w/cad, [facility]. 08/17/2024 Bilateral MG 3D screening mammo w/cad, [facility]. Findings: The upper outer quadrant of the left breast, the axilla of the left breast and the retroareolar of the left breast were scanned. A complete US of all four quadrants of the breast and retro-areolar region were reviewed. No solid or cystic masses are identified.. Overall Assessment: Probably benign, BI-RAD 3 Management: Diagnostic Mammogram of the left breast in 6 months. A clinical breast exam by your physician is recommended on an annual basis and results should be correlated with mammographic findings. This exam should not preclude additional follow-up of suspicious palpable abnormalities. Results were given to the patient verbally at the time of exam. [facility], , 08/21/2024 1:01 PM. Electronically signed and approved by: Louie Aguilar M.D. Radiologis
--- NOTE | 2024-08-21 13:10 | MM ---
Reason for Exam: Additional evaluation requested from abnormal screening. Last screening mammogram was performed less than 1 month ago. Patient History: Menarche at age 13. First Full-Term at age 19. Hysterectomy at age 25. Postmenopausal. Progesterone, from age 43 until age 45. 04/09/2011, Benign Core Biopsy on the left side. Niece had ovarian cancer under age 50. Sister had endometrial cancer. Risk Values: Hannah 5 year model risk: 0.8%. NCI Lifetime model risk: 7.8%. Prior Study Comparison: 06/01/2022 Bilateral MG 3D screening mammo w/cad, [facility]. 06/20/2023 Bilateral MG 3D screening mammo w/cad, [facility]. 08/17/2024 Bilateral MG 3D screening mammo w/cad, [facility]. Tissue Density: Left: The breasts are heterogeneously dense, which may obscure small masses. Findings: Analyzed By CAD. Area of distortion upper outer left breast appears less conspicuous on additional views obtained however does not entirely resolve. Ultrasound is recommended. Overall Assessment: Incomplete: need additional imaging evaluation, BI-RAD 0 Management: Diagnostic Breast Ultrasound of the left breast. . Results were given to the patient verbally at the time of exam. Patient should continue monthly self-breast exams. A clinical breast exam by your physician is recommended on an annual basis. This exam should not preclude additional follow-up of suspicious palpable abnormalities. Note on Hannah scores and lifetime risk: 1. A Hannah score greater than 3% is considered moderate risk. If this is the case, consider specialist referral to assess eligibility for a risk reducing agent. 2. If overall lifetime risk for the development of breast cancer is 20% or higher, the patient may qualify for future screening with alternating mammogram and breast MRI. [facility], , 08/21/2024 1:07 PM. Electronically signed and approved by: Louie Aguilar M.D. Radiologis
== END | disposition home or self-care (01) ==
LOC: RADMAMWWP 11:29
PROVIDERS: ATTEND Pediatrics
DX: R92.8 Other abnormal and inconclusive findings on diagnostic imaging of breast (principal); R92.332 Mammographic heterogeneous density, left breast; Z78.0 Asymptomatic menopausal state
CPT/HCPCS: 77065; 76642; G0279; 77061